=== PATIENT | female | born 1940 | race African-American/Black ===

== ENCOUNTER 2018-08-24 08:53 | Outpatient (CLI) | payer MEDICARE | END 2018-08-24 08:54 | disposition home or self-care (01) | LOC: BICMAMMO 08:53 | PROVIDERS: ATTEND Family Medicine | DX: Z12.31 Encounter for screening mammogram for malignant neoplasm of breast (principal); Z80.3 Family history of malignant neoplasm of breast | CPT/HCPCS: 77063; 77067 ==

== ENCOUNTER 2018-10-06 21:43 | Emergency (ER) | payer MEDICARE ==
--- NOTE | 2018-10-06 22:27 | CT ---
HEAD CT WITHOUT CONTRAST: 10/06/18 COMPARISON: 01/02/10. HISTORY: Fall. TECHNIQUE: Serial axial CT imaging at 5 mm intervals from vertex through skull base without contrast. FINDINGS: The imaged paranasal sinuses and mastoid air cells are well aerated. There is no displaced calvarial fracture. There is a focal area of scalp swelling seen in the right frontal region. There is moderate diffuse cerebral volume loss with associated prominence of the CSF containing spaces. Mild white mat ter hypodensity suggests small vessel disease. There is no intracranial hemorrhage, midline shift, or mass effect. IMPRESSION: Scalp swelling in the right supraorbital region. No associated fracture or intracranial hemorrhage. POS: [facility]
--- NOTE | 2018-10-06 22:29 | RAD ---
FOUR VIEWS OF THE LEFT KNEE: 10/06/18 COMPARISON: None. HISTORY: Injury, trauma, pain. FINDINGS: The lateral exam demonstrates no knee joint effusion. There is enthesophyte formation at the insertio n of the quadriceps tendon. There is mild medial and lateral compartment narrowing. There is no displ aced fracture or evidence of dislocation seen. IMPRESSION: No acute fracture or dislocation. POS: [facility]
== END 2018-10-06 23:11 | disposition short-term general hospital (02) ==
LOC: ERS 21:43
DX: S00.03XA Contusion of scalp, initial encounter (principal); E11.9 Type 2 diabetes mellitus without complications; I10 Essential (primary) hypertension; Z99.2 Dependence on renal dialysis; W19.XXXA Unspecified fall, initial encounter
CPT/HCPCS: 70450; 93005

== ENCOUNTER 2019-04-22 08:28 | Emergency (ER) | payer MEDICARE ==
[2019-04-22] MEDS ORDERED: Lidocaine 4% Topical Sol 50 ML BOT ONE (09:08)
[2019-04-22] MEDS ORDERED: Acetaminophen 500 MG TAB ONE (09:08)
[2019-04-22 09:14] LABS: #Basophils 0.1 thou/uL (0.0-0.2); #Eosinphils 0.5 thou/uL (0.0-0.7); #Lymphocytes 1.7 thou/uL (1.20-3.40); #Monocytes 0.7 thou/uL (0.11-0.59); %Basophils 0.8 % (0.0-1.0); %Eosinophils 6.8 % (0.0-10.0); %Lymphocytes 24.4 % (21.0-51.0); %Monocytes 10.4 % (0.0-10.0); %Neutrophils 57.5 % (42.0-75.0); Hemoglobin 11.4 g/dL (12.0-16.0); Mean Corpuscular HGB CONC 31.7 g/dL (32.0-36.0); Mean Corpuscular Hemoglobin 30.8 pg (27.0-31.0); Mean Corpuscular Volume 97.1 fL (78.0-98.0); Mean Platelet Volume 8.7 fL (7.4-10.4); Platelet Count 193 thou/uL (130-400); RBC Distribution Width 16.8 % (11.5-14.5); Red Blood Cell (RBC) Count 3.72 mill/uL (4.20-5.40)
--- NOTE | 2019-04-22 09:17 | RAD ---
FRONTAL VIEW CHEST: COMPARISON: 06/07/2017. INDICATION: Dizziness, otalgia. FINDINGS: There is enlargement of the cardiac silhouette. Lungs are clear. Mild prominence of the central pul monary vasculature. Chest is otherwise similar. IMPRESSION: Congestive heart failure. POS: [facility]
[2019-04-22 09:37] LABS: ALT (SGPT) 11 U/L (8-55); AST (SGOT) 17 U/L (5-34); Albumin 3.6 g/dL (3.4-4.8); Alkaline Phosphatase 148 U/L (40-150); Anion Gap 18 mmol/L (10-20); BUN (Urea Nitrogen) 46 mg/dL (9.8-20.1); Bilirubin, Total 0.7 mg/dL (0.2-1.2); Calc. Creatinine Clearance 0 mL/min (70-130); Calcium 8.7 mg/dL (7.8-10.44); Carbon Dioxide 28 mmol/L (23-31); Chloride 96 mmol/L (98-107); Estimated GFR-MDRD 6; Globulin 3.5 g/dL (2.4-3.5); Glucose 137 mg/dL (83-110); Lipase 18 U/L (8-78); Magnesium 1.6 mg/dL (1.6-2.6); Potassium 4.2 mmol/L (3.5-5.1); Protein, Total 7.1 g/dL (6.0-8.3); Sodium 138 mmol/L (136-145)
[2019-04-22 09:58] LABS: CKMB 1.2 ng/mL (0-6.6)
[2019-04-22 12:38] LABS: Troponin I 0.184 ng/mL (< 0.028)
== END 2019-04-22 13:01 | disposition home or self-care (01) ==
LOC: ERS 08:28
DX: H83.03 Labyrinthitis, bilateral (principal); E11.9 Type 2 diabetes mellitus without complications; I10 Essential (primary) hypertension; Z79.899 Other long term (current) drug therapy; Z79.82 Long term (current) use of aspirin
CPT/HCPCS: 36415; 71045; 80053; 82553; 83605; 83690; 83735; 84484; 85025; 93005; 94760

== ENCOUNTER 2019-08-28 08:59 | Outpatient (CLI) | payer MEDICARE ==
--- NOTE | 2019-08-28 10:05 | MMO ---
Bilateral MAMMO Bilat Screen [facility]. CLINICAL HISTORY: Patient is 79 years old and is seen for screening. The patient has no family history of breast cancer. The patient has no personal history of cancer. VIEWS: The views performed were: bilateral craniocaudal with tomosynthesis and bilateral mediolateral oblique with tomosynthesis. FILMS COMPARED: The present examination has been compared to prior imaging studies performed at [facility] on 08/12/2015, 08/17/2016, 08/18/2017 and 08/24/2018. This study has been interpreted with the assistance of computer-aided detection. MAMMOGRAM FINDINGS: There are scattered fibroglandular densities. Benign calcifications are noted bilaterally. There are no suspicious masses, suspicious calcifications, or new areas of architectural distortion. IMPRESSION: THERE IS NO MAMMOGRAPHIC EVIDENCE OF MALIGNANCY. A ROUTINE FOLLOW-UP MAMMOGRAM IN 1 YEAR IS RECOMMENDED. THE RESULTS OF THIS EXAM WERE SENT TO THE PATIENT. ACR BI-RADS Category 2 - Benign finding MAMMOGRAPHY NOTE: 1. A negative mammogram report should not delay a biopsy if a dominant of clinically suspicious mass is present. 2. Approximately 10% to 15% of breast cancers are not detected by mammography. 3. Adenosis and dense breasts may obscure an underlying neoplasm. Reported by: MICHAELA PINA MD Electonically Signed: [id number]
== END 2019-08-28 09:00 | disposition home or self-care (01) ==
LOC: BICMAMMO 08:59
PROVIDERS: ATTEND Family Medicine
DX: Z12.31 Encounter for screening mammogram for malignant neoplasm of breast (principal)
CPT/HCPCS: 77063; 77067

== ENCOUNTER 2020-06-23 09:41 | Outpatient (CLI) | payer MEDICARE ==
--- NOTE | 2020-06-23 10:58 | RAD ---
LEFT HAND 3 VIEWS: Date: 06/23/2020 HISTORY: Joint pain. COMPARISON: None. FINDINGS: There is mild to moderate metacarpophalangeal joint space narrowing and mild interphalangeal joint sp hector narrowing. No erosions or periostitis. On the lateral view, there is lateral subluxation of the thumb metacarpophalangeal joint with small e rosion on the medial margin of the metacarpal head suggesting chronic UCL insufficiency. IMPRESSION: 1. Mild degenerative change. 2. 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 POS: [facility]
--- NOTE | 2020-06-23 11:05 | RAD ---
RIGHT HAND 3 VIEWS: Date: 06/23/2020 HISTORY: Joint pain. FINDINGS: No acute fracture or malalignment. Mild metacarpophalangeal joint space narrowing as well as mild int erphalangeal joint space narrowing, as expected for age. On the lateral view, there is subluxation, radially of the thumb metacarpophalangeal joint. IMPRESSION: 1. Mild degenerative change as expected for age. 2. No evidence for inflammatory arthropathy. 3. Likely insufficient thumb metacarpophalangeal joint ulnar collateral ligament. POS: [facility]
== END 2020-06-23 09:42 | disposition home or self-care (01) ==
LOC: RAD 09:41
PROVIDERS: ATTEND Internal Medicine Rheumatology
DX: M25.541 Pain in joints of right hand (principal); M25.542 Pain in joints of left hand; M19.042 Primary osteoarthritis, left hand; M19.041 Primary osteoarthritis, right hand

== ENCOUNTER 2020-07-23 15:01 | Outpatient (CLI) | payer MEDICARE ==
--- NOTE | 2020-07-23 17:04 | RAD ---
Bone survey adult Skull one view, cervical spine 2 views, thoracic spine 2 views, lumbar spine 2 views, AP pelvis one v iew, right humerus one view, right forearm 1 view, left humerus one view, left forearm 1 view, right femur one view, right lower leg one view, left femur one view, left lower leg one view HISTORY: Multiple myeloma. Initial staging. FINDINGS: No lytic lesions of the skull or other osseous structures apparent. In addition to osteoarthritic changes throughout the axial spine, flowing syndesmophytes are present throughout the thoracic spine and upper lumbar spine. Vertebral body heights and alignment are maintained. Pedicles are intact. Mild degenerative changes of the hips, shoulders, elbows, and knees. Metallic clips overlie the gallbladder fossa. There is prominent calcification throughout the arteria l structures, including at the carotid bifurcations. Multiple vascular stents project over the left upper arm. IMPRESSION : No aggressive osseous lesions demonstrated. Findings suggestive of ankylosing spondylitis. Please correlate with clinical history/findings. Prominent atherosclerosis.
== END 2020-07-23 15:02 | disposition home or self-care (01) ==
LOC: RAD 15:01
PROVIDERS: ATTEND Internal Medicine Hematology & Oncology
DX: C90.00 Multiple myeloma not having achieved remission (principal); D47.2 Monoclonal gammopathy; I70.0 Atherosclerosis of aorta; I65.29 Occlusion and stenosis of unspecified carotid artery
CPT/HCPCS: 77075

== ENCOUNTER 2020-08-12 08:07 | Outpatient (CLI) | payer MEDICARE ==
--- NOTE | 2020-08-12 10:33 | PET ---
EXAM: PET/CT HISTORY: Multiple myeloma TECHNIQUE: PET scanning with CT attenuation correction was performed from the vertex of the brain to the feet fo llowing the intravenous administration of 11.4 millicuries [id number]. COMPARISON: CTA of the thorax dated January 26, 2019 FINDINGS: Biodistribution:The biodistribution for the exam appears acceptable. Head and neck: There is appropriate background activity within the brain. No hypermetabolic lymphaden opathy or masses identified. Thorax: No hypermetabolic pulmonary lesion, pleural effusion or lymphadenopathy is present. There is an endovascular dialysis graft seen within the left arm and left axilla. Abdomen and pelvis: There is expected background activity within the GI and systems. No hypermetab olic mass, lymphadenopathy or ascites is present. There is a 1.5 cm left adrenal adenoma. There are bilateral renal cysts. There is colonic diverticulosis. Osseous structures and skin: No hypermetabolic skin or osseous lesion is identified. IMPRESSION: Normal PET/CT. 1. No hypermetabolic abnormality demonstrated involving the head neck region, chest, abdomen, pelvis and lower extremities.
== END 2020-08-12 08:08 | disposition home or self-care (01) ==
LOC: PET 08:07
PROVIDERS: ATTEND Internal Medicine Hematology & Oncology
DX: C90.00 Multiple myeloma not having achieved remission (principal)
CPT/HCPCS: 78816; A9552

== ENCOUNTER 2020-08-26 08:07 | Day surgery (SDC) | payer MEDICARE ==
[~2020-08-26 08:07] MED LIST: FLU VACC QS2020-21(65YR UP)/PF 240 MCG/0.7 ML SYRINGE IM ONE
[2020-08-26 08:48] LABS: PTT 28.1 sec (22.9-36.1); Prothrombin Time 13.3 sec (12.0-14.7)
[2020-08-26 09:25] VITALS: BP 108/52; TEMP 97.8
[2020-08-26 09:36] VITALS: BMI 26.9
[2020-08-26] MEDS ORDERED: Midazolam HCl 2 mg/2 ml Vial ONE (10:03)
[2020-08-26] MEDS ORDERED: Fentanyl 100 MCG/2 ML VIAL ONE (10:03)
[2020-08-26] MEDS ORDERED: Sodium Bicarbonate 2.5 MEQ/5 ML VIAL ONE (10:03)
--- NOTE | 2020-08-26 11:50 | CT ---
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 Patient placed prone on CT table. Skin of lower back prepared and d raped in usual sterile fashion. 25-gauge needle used to apply buffered lidocaine superficially, then at the periosteum of the right PSIS. 11-gauge Arrow [employer]Control bone marrow biopsy needle with tro car advanced with distal tip slightly deep to the posterior cortical surface of the PSIS. Trocar removed. Marrow aspiration performed with 2 syringes, 3 mL in first syringe and 5 mL in second syring e, both of which were given to finishing technician from laboratory. Next, the electric power team driver was connected to the biopsy needle. The entire power team driver and 11-gauge needle set was advanced and retr acted, yielding a bone marrow core tissue sample, which was also given to the laboratory courier. Compression was held at the puncture site until hemostasis achieved. Patient tolerated pr ocedure well. No complications. IMPRESSION: Successful CT-guided bone marrow biopsy and aspiration.
--- NOTE | 2020-08-27 14:37 | CT ---
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 Patient placed prone on CT table. Skin of lower back prepared and d raped in usual sterile fashion. 25-gauge needle used to apply buffered lidocaine superficially, then at the periosteum of the right PSIS. 11-gauge Arrow OnControl bone marrow biopsy needle with tro car advanced with distal tip slightly deep to the posterior cortical surface of the PSIS. Trocar removed. Marrow aspiration performed with 2 syringes, 3 mL in first syringe and 5 mL in second syring e, both of which were given to stage technician from laboratory. Next, the electric power motor coach driver was connected to the biopsy needle. The entire power motor coach driver and 11-gauge needle set was advanced and retr acted, yielding a bone marrow core tissue sample, which was also given to the pathology laboratory aide. Compression was held at the puncture site until hemostasis achieved. Patient tolerated pr ocedure well. No complications. IMPRESSION: Successful CT-guided bone marrow biopsy and aspiration. Transcribed Date/Time: 08/27/2020 2:37 PM
== END 2020-08-26 11:30 | disposition home or self-care (01) ==
LOC: CT 08:07
PROVIDERS: ATTEND Internal Medicine Hematology & Oncology
PROC: 07DR3ZX Extraction of Iliac Bone Marrow, Percutaneous Approach, Diagnostic (ICD-10-PCS; principal; 2020-08-26)
DX: C90.00 Multiple myeloma not having achieved remission (principal); D47.2 Monoclonal gammopathy; I12.0 Hypertensive chronic kidney disease with stage 5 chronic kidney disease or end stage renal disease; E11.22 Type 2 diabetes mellitus with diabetic chronic kidney disease; N18.6 End stage renal disease; E78.5 Hyperlipidemia, unspecified; M06.9 Rheumatoid arthritis, unspecified; K21.9 Gastro-esophageal reflux disease without esophagitis; Z79.4 Long term (current) use of insulin; Z79.82 Long term (current) use of aspirin; Z79.899 Other long term (current) drug therapy; Z99.2 Dependence on renal dialysis
CPT/HCPCS: 20225; 36415; 77012; 85097; 85610; 85730; 88184; 88185; 88237; 88264; 88280; 88305; 88311; 88313; 88341; 88342; 88365; J2250; J3010

== ENCOUNTER 2020-08-27 09:41 | Outpatient (CLI) | payer MEDICARE ==
--- NOTE | 2020-08-29 10:14 | MMO ---
Bilateral MAMMO Bilat Screen [facility]. CLINICAL HISTORY: Patient is 80 years old and is seen for screening. The patient has no family history of breast cancer. The patient has no personal history of cancer. VIEWS: The views performed were: bilateral craniocaudal with tomosynthesis and bilateral mediolateral oblique with tomosynthesis. FILMS COMPARED: The present examination has been compared to prior imaging studies performed at [facility] on 08/17/2016, 08/18/2017, 08/24/2018 and 08/28/2019. This study has been interpreted with the assistance of computer-aided detection. MAMMOGRAM FINDINGS: There are scattered fibroglandular densities. There are stable benign appearing calcifications seen in both breasts. There are also vascular calcifications. There are no suspicious masses, suspicious calcifications, or new areas of architectural distortion. IMPRESSION: THERE IS NO MAMMOGRAPHIC EVIDENCE OF MALIGNANCY. A ROUTINE FOLLOW-UP MAMMOGRAM IN 1 YEAR IS RECOMMENDED. THE RESULTS OF THIS EXAM WERE SENT TO THE PATIENT. ACR BI-RADS Category 2 - Benign finding MAMMOGRAPHY NOTE: 1. A negative mammogram report should not delay a biopsy if a dominant of clinically suspicious mass is present. 2. Approximately 10% to 15% of breast cancers are not detected by mammography. 3. Adenosis and dense breasts may obscure an underlying neoplasm. Reported by: DAVID CEE MD Electonically Signed: [id number]
== END 2020-08-27 09:42 | disposition home or self-care (01) ==
LOC: BICMAMMO 09:41
PROVIDERS: ATTEND Family Medicine
DX: Z12.31 Encounter for screening mammogram for malignant neoplasm of breast (principal)
CPT/HCPCS: 77063; 77067

== ENCOUNTER 2020-12-04 12:49 | Emergency (ER) | payer MEDICARE ==
--- NOTE | 2020-12-04 13:54 | CT ---
CT CERVICAL SPINE NONCONTRAST: DATE: 12/04/2020 HISTORY: cervical trauma: 80-year-old female status post fall FINDINGS: There are no jumped or perched facets. There is no evidence of acute fracture. There is chronic loss of height of C5 vertebral body with very irregular superior endplate containing numerous osseous defects. Such numerous endplate osseous defects are also present at the inferior endplate of C4, to a lesser degree. The rest of the vertebral body heights are maintained. There is no prevertebral soft tissue swelling. IMPRESSION: 1. No evidence of acute fracture or acute traumatic subluxation. 2. Severe degenerative disc disease at C4-5.
--- NOTE | 2020-12-04 14:05 | CT ---
CT BRAIN NONCONTRAST: DATE: 12/04/2020 HISTORY: 80-year-old female status post acute head trauma from fall FINDINGS: There is no evidence of acute intra-axial or extra-axial hemorrhage. There is no midline shift or any other mass effect. There is no extra-axial fluid collection. There is no evidence of obstructive hydrocephalus. Calvarium is intact. There is diffuse brain parenchymal volume loss. There are low att enuation areas in the white matter. These are nonspecific, but in a patient of this age, they are probably chronic ischemic white matter changes due to microvascular atherosclerosis. There is focal l eft parietal superficial soft tissue swelling from contusion. IMPRESSION: 1) No acute intracranial findings. 2) involutional changes and chronic ischemic white matter changes. 3) acute, traumatic left parietal scalp contusion.
--- NOTE | 2020-12-04 14:20 | RAD ---
EXAM: XR Lumbar Spine 2 Or 3 View PROVIDED CLINICAL HISTORY: Low back pain. History of multiple myeloma. COMPARISON: 12/10/2011 FINDINGS: There are are 5 nonrib-bearing lumbar-type vertebral bodies. There is mild height loss involving the central aspect superior endplate of the L1 vertebral body which may represent a mild compression fracture of indeterminate age. The remaining vertebral body heights are within normal limits. No subl uxation is seen. Multilevel osteophytes are present with mild facet degenerative changes in the lower lumbar spine. Vascular calcifications are seen in the abdominal aorta and involving the iliac as well as overlying the left upper quadrant. There is a rounded calcification seen in the right upper quadrant also seen on prior exam which overlies the expected location of the right renal shadow. Prior PET/CT exami [facility] [place] on 08/12/2020 demonstrates a peripherally calcified splenic artery aneurysm likely accounting for this finding. IMPRESSION: 1. Mild height loss centrally along the superior endplate L1 vertebral body which may represent a com pression fractures of indeterminate age. 2. Degenerative changes in the lumbar spine. 3. Vascular calcifications with rounded also location overlying right upper quadrant which was shown to represent a peripherally calcified splenic artery aneurysm on prior PET/CT exam.
== END 2020-12-04 15:14 | disposition home or self-care (01) ==
LOC: ERS 12:49
DX: S00.03XA Contusion of scalp, initial encounter (principal); M54.5 Low back pain; E11.9 Type 2 diabetes mellitus without complications; I10 Essential (primary) hypertension; Z79.899 Other long term (current) drug therapy; W01.0XXA Fall on same level from slipping, tripping and stumbling without subsequent striking against object, initial encounter
CPT/HCPCS: 70450; 72100; 72125

== ENCOUNTER 2020-12-10 09:21 | Observation (INO) | payer MEDICARE ==
[2020-12-10 10:05] LABS: #Basophils 0.1 thou/uL (0.0-0.2); #Eosinphils 0.3 thou/uL (0.0-0.7); #Lymphocytes 2.3 thou/uL (1.20-3.40); #Monocytes 0.9 thou/uL (0.11-0.59); #Neutrophils 6.9 thou/uL (1.40-6.50); %Basophils 0.6 % (0.0-1.0); %Eosinophils 2.6 % (0.0-10.0); %Lymphocytes 22.1 % (21.0-51.0); %Monocytes 8.8 % (0.0-10.0); Hemoglobin 10.8 g/dL (12.0-16.0); Mean Corpuscular HGB CONC 32.1 g/dL (32.0-36.0); Mean Corpuscular Hemoglobin 32.5 pg (27.0-31.0); Mean Platelet Volume 9.5 fL (7.4-10.4); Platelet Count 198 thou/uL (130-400); RBC Distribution Width 17.9 % (11.5-14.5); Red Blood Cell (RBC) Count 3.33 mill/uL (4.20-5.40); White Blood Cell (WBC) Count 10.4 thou/uL (4.8-10.8)
--- NOTE | 2020-12-10 10:13 | RAD ---
Chest AP view INDICATION: History of Covid positive diagnosis with back pain COMPARISON: Prior single view the chest dated April 22, 2019 FINDINGS: Lungs: There is hazy airspace opacity within both lower lobes Cardiac silhouette: There is cardiomegaly Pulmonary vasculature: There is pulmonary vascular congestion Pleural spaces: There are small bilateral pleural effusions Upper abdomen: No abnormality seen. Osseous structures: No acute osseous abnormality. Additional findings: There are grafts present within the soft tissues of the left upper extremity th at are stable to the prior. IMPRESSION: Findings suspicious for volume overload or [id number] CHF. The airspace disease within the lower lobes is most suspicious for airspace edema; however, atypical pneumonia related to Covid cannot be entirely excluded. Recommend continued radiographic follow-up.
[2020-12-10] MEDS ORDERED: Ketorolac Tromethamine 30 MG/ML VIAL ONE (10:23)
[2020-12-10 10:29] LABS: ALT (SGPT) 10 U/L (8-55); AST (SGOT) 21 U/L (5-34); Albumin 3.3 g/dL (3.4-4.8); Alkaline Phosphatase 96 U/L (40-110); Anion Gap 23 mmol/L (10-20); BUN (Urea Nitrogen) 69 mg/dL (9.8-20.1); Bilirubin, Total 0.5 mg/dL (0.2-1.2); CK (CPK) 38 U/L (29-168); Calc. Creatinine Clearance 0 mL/min (70-130); Calcium 8.1 mg/dL (7.8-10.44); Carbon Dioxide 25 mmol/L (23-31); Chloride 96 mmol/L (98-107); Globulin 4.1 g/dL (2.4-3.5); Glucose 126 mg/dL (83-110); Magnesium 2.2 mg/dL (1.6-2.6); Protein, Total 7.4 g/dL (6.0-8.3); Sodium 138 mmol/L (136-145)
[2020-12-10 10:45] LABS: CKMB 1.9 ng/mL (0-6.6)
[2020-12-10 13:37] LABS: Troponin I 0.353 ng/mL (< 0.028)
--- NOTE | 2020-12-10 14:01 | PDOC.HHP ---
Hospitalist HPI - History of Present Illness Chest pain or shortness of breath History of Present Illness: Patient is a 80-year-old female with a history of end-stage renal disease on hemodialysis. Patient reports that she tested positive for Covid about 3 weeks ago. She says she became fatigued and lost her appetite for a while but that seems to be getting better. Patient reports that she was converted to a Tuesday dialysis regimen because of the Covid. She reports that she had dialysis on Tuesday but missed it yesterday because she was not feeling well. Today she presented to the emergency department reporting some discomfort in the right parasternal chest area with some associated shortness of breath. She had no radiation of the pain. She had no lightheadedness or nausea associated with it. She also reports pain in her right lateral hip area. ED Course: Patient was noted to have evidence of volume overload. She also had some hyperkalemia. Dr. Guevara, the patient's train gateman was notified. Patient has plans for dialysis to be performed shortly. She also had a slightly elevated troponin. Repeat shows it is trending upward. Hospitalist ROS - Review of Systems Constitutional: denies: fever, chills Respiratory: reports: shortness of breath. denies: cough Cardiovascular: reports: chest pain. denies: palpitations, edema, light headedness Gastrointestinal: denies: nausea, vomiting, abdominal pain, diarrhea, constipation Genitourinary: denies: dysuria All other systems reviewed; all pertinent +/- noted in HPI/Subj - Medication Medications: Atorvastatin 80 mg p.o. daily Lisinopril 40 mg p.o. daily Clonidine 0.3 mg p.o. twice daily Hospitalist History - Past Medical History Source: patient Cardiac: reports: HTN Renal/: reports: Chronic renal failure Endocrine: reports: Diabetes - Past Surgical History Past Surgical History: reports: Cholecystectomy - Family History Family History: reports: cancer (Mother) - Social History Smoking Status: Never smoker Alcohol: reports: None Drugs: reports: none Living Situation: Alone Activity level: independent ambulation Other Social History: Patient is full code. She says neither of her daughters, Alicia or Pooja, would be her surrogate decision makers. - Exam General Appearance: NAD, awake alert Eye: PERRL Heart: RRR, no murmur, no gallops, no rubs, normal peripheral pulses Respiratory: no wheezes, no ronchi, normal chest expansion, no tachypnea, normal percussion, rales (Scattered) Gastrointestinal: soft, non-tender, non-distended, normal bowel sounds, no palpable masses, no hepatomegaly, no splenomegaly, no bruit Extremities: no cyanosis, no clubbing, no edema Skin: normal turgor Neurological: no focal deficits Musculoskeletal: normal tone, normal strength Psychiatric: normal affect, normal behavior, A&O x 3 Hospitalist Results - Labs Result Diagrams: 12/10/20 09:47 12/10/20 09:47 Lab results: WBC 10.4 thou/uL (4.8-10.8) 12/10/20 09:47 Hgb 10.8 g/dL (12.0-16.0) L 12/10/20 09:47 Hct 33.7 % (36.0-47.0) L 12/10/20 09:47 MCV 101.0 fL (78.0-98.0) H 12/10/20 09:47 Plt Count 198 thou/uL (130-400) 12/10/20 09:47 Neutrophils % 66.0 % (42.0-75.0) 12/10/20 09:47 Sodium 138 mmol/L (136-145) 12/10/20 09:47 Potassium 6.0 mmol/L (3.5-5.1) H 12/10/20 09:47 Chloride 96 mmol/L (98-107) L 12/10/20 09:47 Carbon Dioxide 25 mmol/L (23-31) 12/10/20 09:47 BUN 69 mg/dL (9.8-20.1) H 12/10/20 09:47 Creatinine 9.23 mg/dL (0.6-1.1) H 12/10/20 09:47 Glucose 126 mg/dL (83-110) H 12/10/20 09:47 Calcium 8.1 mg/dL (7.8-10.44) 12/10/20 09:47 Total Bilirubin 0.5 mg/dL (0.2-1.2) 12/10/20 09:47 AST 21 U/L (5-34) 12/10/20 09:47 ALT 10 U/L (8-55) 12/10/20 09:47 Alkaline Phosphatase 96 U/L (40-110) 12/10/20 09:47 Creatine Kinase 38 U/L (29-168) 12/10/20 09:47 CK-MB (CK-2) 1.9 ng/mL (0-6.6) 12/10/20 09:47 Troponin I 0.353 ng/mL (< 0.028) H* 12/10/20 12:53 Serum Total Protein 7.4 g/dL (6.0-8.3) 12/10/20 09:47 Albumin 3.3 g/dL (3.4-4.8) L 12/10/20 09:47 - Radiology Interpretation Chest x-ray Status: report reviewed by me (Vascular congestion) Hospitalist H&P A/P - Problem (1) Chest pain Code(s): R07.9 - CHEST PAIN, UNSPECIFIED Status: Acute (2) Elevated troponin Code(s): R77.8 - OTHER SPECIFIED ABNORMALITIES OF PLASMA PROTEINS Status: Acute (3) Diabetes type 2, controlled Code(s): E11.9 - TYPE 2 DIABETES MELLITUS WITHOUT COMPLICATIONS Status: Chronic (4) ESRD (end stage renal disease) on dialysis Code(s): N18.6 - END STAGE RENAL DISEASE; Z99.2 - DEPENDENCE ON RENAL DIALYSIS Status: Chronic (5) Hypertension Code(s): I10 - ESSENTIAL (PRIMARY) HYPERTENSION Status: Chronic (6) Hyperkalemia Code(s): E87.5 - HYPERKALEMIA Status: Acute (7) Anemia in chronic kidney disease Code(s): N18.9 - CHRONIC KIDNEY DISEASE, UNSPECIFIED; D63.1 - ANEMIA IN CHRONIC KIDNEY DISEASE Status: Acute - Plan Plan: Chest pain: Patient presented with right parasternal chest pressure. Her troponins are slightly elevated and trending upward slightly. These may completely be related to her age and end-stage renal disease. Historically she has had some slight elevations in her troponin as well. Given her symptoms and the upward trend we will communicate with her car diologist, Dr. Thomason. Continue to trend troponins. Continue telemetry. Patient reports she has had a stress test with Dr. Thomason but she cannot recall when. May be related to some volume overload with some pulmonary vascular congestion. Patient is due to get dialysis shortly. Volume overload secondary to end-stage renal disease: Patient missed her dialysis yesterday and has evidence of volume overload with pulmonary vascular congestion and shortness of breath. Dr. Guevara was consulted in the emergency department. Dialysis is being arranged for the patient here in the emergency department. Hyperkalemia: Secondary to missed dialysis and end-stage renal disease. Should resolve with the dialysis. Hypertension: Resume her usual home medications with lisinopril and clonidine. Diabetes mellitus: Patient does not appear to be on medications currently that I can tell. We will continue Accu-Cheks and sliding scale insulin as needed. Hyperlipidemia: Continue with atorvastatin. Recent diagnosis of Covid pneumonia: Patient reports that she tested positive over 3 weeks ago. She appears to be outside the window of requiring isolation. Repeat screening has been ordered in the emergency department.
[2020-12-10] MEDS ORDERED: Aspirin Chewable 81 MG TAB ONE (14:06)
[2020-12-10 15:32] LABS: SARS-CoV-2 NAA Rapid Test DETECTED (NotDetected)
[2020-12-10 15:41] VITALS: BMI 25.7
[2020-12-10 16:59] LABS: Troponin I 0.422 ng/mL (< 0.028)
[2020-12-10 17:05] LABS: HBSAg Index 0.24 S/CO (0-0.99); Hep B Surf Ag Non-Reactive S/CO (NonReactive)
--- NOTE | 2020-12-10 18:29 | CON ---
DATE OF CONSULTATION: REASON FOR CONSULTATION: Elevated troponin. Dr. Serge Thomason is the primary provider. HISTORY OF PRESENT ILLNESS: Ms. Eastman is an 80-year-old woman, who has been seen by Dr. Serge Thomason in the past. She recently presented with COVID pneumonia. She states she did not feel well recently. She skipped her dialysis. She has had atypical chest pain. Troponin slightly elevated. CURRENT MEDICATIONS: Include, 1. Prednisone. 2. Clonidine. 3. Vitamin D3. 4. Aspirin. 5. Hydralazine. 6. Calcium. 7. Levemir. 8. Dialyvite. 9. Lisinopril. 10. Metoprolol. 11. Atorvastatin. PAST MEDICAL HISTORY: End-stage renal disease, acid reflux, hyperlipidemia, diabetes mellitus, hypertension. SURGICAL HISTORY: hyperlipidemia. ALLERGIES: NONE. REVIEW OF SYSTEMS: A 10-point review of systems is reviewed and is as above, otherwise negative. PHYSICAL EXAMINATION: VITAL SIGNS: Blood pressure 156/69, pulse 64, temperature 98. Physical exam deferred due to COVID pneumonia. PERTINENT LABORATORY DATA: Hemoglobin 10.8, hematocrit 33.7. Creatinine 9.23. Peak troponin 0.4. IMPRESSION: 1. Elevated troponin. 2. COVID positive pneumonia. 3. End-stage renal disease. RECOMMENDATIONS: Ms. Eastman's elevated troponin likely multifactorial. It is likely due to demand ischemia in addition to COVID pneumonia as well as end-stage renal disease. Continue close observation and treat her blood pressure aggressively. Do not recommend heparin, but continue with aspirin. We will also recommend beta-michael therapy and statin treatment. Further recommendation per Dr. Serge Thomason in a.m. Job ID: [id number]
[2020-12-11 05:04] LABS: Anion Gap 18 mmol/L (10-20); BUN (Urea Nitrogen) 33 mg/dL (9.8-20.1); Calc. Creatinine Clearance 10 mL/min (70-130); Calcium 7.7 mg/dL (7.8-10.44); Carbon Dioxide 28 mmol/L (23-31); Chloride 97 mmol/L (98-107); Glucose 87 mg/dL (83-110); Potassium 4.6 mmol/L (3.5-5.1); Sodium 138 mmol/L (136-145)
[2020-12-11] MEDS: Acetaminophen 325 MG TAB PO PRN ×2 (06:12→13:34)
--- NOTE | 2020-12-11 09:42 | CON ---
DATE OF CONSULTATION: 12/11/2020 HISTORY OF PRESENT ILLNESS: Ms. Eastman is an 80-year-old black female with ESRD, currently on maintenance hemodialysis, recently diagnosed with COVID-19 pneumonia, and admitted for chest pain and shortness of breath. She underwent emergent hemodialysis yesterday. She was also borderline hyperkalemic at that time. There was some mildly elevated troponin-I. Cardiology consult has been done with Dr. Garcia. This morning, she is feeling better. Her shortness of breath has improved. Denies any chest pain. She tolerated her hemodialysis yesterday. REVIEW OF SYSTEMS: No chest pain currently, no shortness of breath. No nausea. No vomiting. Appetite and energy level are fair. No gross hematuria. No dysuria. No abdominal pain. No fever or chills. Occasional cough. Occasional joint pains. No hematochezia. No melena. HOME MEDICATIONS: Include the following; 1. Prednisone 5 mg daily. 2. Clonidine 0.3 mg p.o. b.i.d. 3. Lyrica 25 mg daily. 4. Metoprolol succinate 100 mg at bedtime. 5. Lisinopril 40 mg daily. 6. Levemir 8 units subcu daily. 7. Folic acid one tablet daily. 8. Vitamin D3, 5000 international units at bedtime. 9. Atorvastatin 80 mg at bedtime. 10. Aspirin 81 mg tablet at bedtime. PAST MEDICAL HISTORY: 1. ESRD from diabetic nephropathy. 2. Type 2 diabetes mellitus. 3. Hypertension. 4. Diabetic neuropathy. 5. DJD. 6. Hyperlipidemia. 7. Recent diagnosis of COVID-19 pneumonia. 8. Status post CHF. 9. Long-standing hypertension. 10. History of multiple myeloma. PAST SURGICAL HISTORY: Status post AV fistula placement, status post open cholecystectomy, status post cuffed hemodialysis catheter placement, status post right shoulder and left elbow surgery, status post cataract surgery, status post upper and lower GI endoscopy. The patient is status post bone marrow biopsy. SOCIAL HISTORY: The patient is , lives in [place], several children. No history of smoking. No alcohol intake. Status post blood transfusion. Sedentary lifestyle. FAMILY HISTORY: No family history of ESRD. ALLERGIES: NONE. TRAUMA: None. IMMUNIZATIONS: Up to date. HOSPITALIZATIONS: Please see past medical history. PHYSICAL EXAMINATION: VITAL SIGNS: Blood pressure is noted at 152/66, heart rate 81, respiratory rate 18, temperature 98.4, O2 saturation 98% on room air. GENERAL: The patient is awake, alert, comfortable, not in overt distress. SKIN: Adequate turgor. HEENT: She has pinkish conjunctivae. Anicteric sclerae. No neck mass. No carotid bruits. No JVD. CHEST: No deformities. LUNGS: Clear breath sounds. No wheezing. No crackles. HEART: Normal sinus rhythm. No murmur. No gallops. No rubs. ABDOMEN: Globular, soft, nontender. No masses. EXTREMITIES: No edema. No deformities. LABORATORY DATA: On December 10, 2020: White count 10.4, hemoglobin 10.8. On December 11, 2020: Sodium 138, potassium 4.6, chloride 97, carbon dioxide 28, BUN 33, creatinine 5.03, calcium 7.7. ASSESSMENT AND PLAN: 1. Mild hyperkalemia, resolved with dialysis. 2. End-stage renal disease, stable. Tolerated hemodialysis last night. Fluid removal is also tolerated. No indication for any emergent dialysis today. I have scheduled her back for Tuesday, Tuesday, and Tuesday dialysis session. 3. COVID-19 pneumonia. Today is her last day for isolation. She will come back to the general population at the dialysis unit tomorrow. Job ID: [id number]
[2020-12-11 16:42] VITALS: BP 168/79; TEMP 98.4
--- NOTE | 2020-12-11 20:00 | PDOC.DS.DS ---
Provider - Provider Date of Admission: 12/10/20 11:09 Date of Discharge: 12/11/20 Admitting Provider: Jignesh Mcdaniel MD Consultations: Cardiology (Dr. Garcia), Nephrology (Dr. Guevara) Primary Care Physician: Khushi Santos MD Course - Hospital Course Hospital Course: Discharge diagnoses: 1. Chest pain 2. Volume overload 3. NSTEMI type II secondary to volume overload 4. Hyperkalemia Hospital course: Pt was admitted on 12/10/2020 for chest pain and elevated troponin secondary to volume overload. She was seen by nephrology and cardiology services. She underwent emergent hemodialysis. Symptoms resolved, and she was discharged home in a stable condition. Discharge destination: Home Resuscitation Status: 12/10/20 13:08 Resuscitation Status Routine Resuscitation Status: FULL: Full Resuscitation - Labs Lab Results: 12/10/20 09:47 12/11/20 04:33 Abnormal Lab Results - Last 48 hrs 12/10/20 09:47: Troponin I 0.264 H 12/10/20 09:47: Potassium 6.0 H, Chloride 96 L, Anion Gap 23 H, BUN 69 H, Creatinine 9.23 H, Albumin 3.3 L, Globulin 4.1 H, Albumin/Globulin Ratio 0.8 L 12/10/20 09:47: RBC 3.33 L, Hgb 10.8 L, Hct 33.7 L, MCV 101.0 H, MCH 32.5 H, RDW 17.9 H, Neutrophils # 6.9 H, Monocytes # 0.9 H 12/10/20 12:20: SARS-CoV-2 Rap RNA(RT-PCR) DETECTED A* 12/10/20 12:53: Troponin I 0.353 H* 12/10/20 16:12: Troponin I 0.422 H* 12/11/20 04:33: Chloride 97 L, BUN 33 H, Creatinine 5.03 H, Calcium 7.7 L - Physical Exam Vitals: Vital Signs (12 hours) Temp Pulse Resp BP Pulse Ox 12/11/20 16:39 98.4 F 79 18 168/79 H 95 12/11/20 10:50 98.5 F 80 15 165/68 H 96 12/11/20 08:00 98.4 F 81 18 152/66 H 98 Weight Weight 159 lb Physical Exam: The patient was seen and examined on the day of discharge. Plan - Discharge Medications Home Medications: Medication Instructions Recorded Confirmed Type Aspirin Chewable [Aspirin Chewable 81 mg PO HS 09/23/14 12/11/20 History Tablet] Cholecalciferol (Vitamin D3) 5,000 unit PO HS 09/23/14 12/11/20 History [Vitamin D3] Folic Acid/Vit B Complex and C 1 tablet PO DAILY 09/23/14 12/11/20 History [Dialyvite] Levemir Flexpen [Levemir FlexPen] 8 unit SC DAILY 09/23/14 12/11/20 History Lisinopril 40 mg PO DAILY 09/23/14 12/11/20 History Metoprolol Succinate [Toprol XL] 100 mg PO HS 09/23/14 12/11/20 History cloNIDine [Catapres] 0.3 mg PO BID 09/23/14 12/11/20 History predniSONE [Prednisone] 5 mg PO DAILY 08/18/20 12/11/20 History Atorvastatin Calcium 80 mg PO HS 12/11/20 12/11/20 History Pregabalin [Lyrica] 25 mg PO DAILY 12/11/20 12/11/20 History Allergies: No Known Allergies Allergy (Verified 08/25/20 08:40) - Discharge Instructions Activity:: Activity as Tolerated Nourishment:: Diabetic Diet, Heart Healthy Diet, Renal Diet - Follow up Plan Referrals: Khushi Santos MD [Primary Care Provider] - 3 Days Serge Thomason MD [Active] - Hector Guevara MD [Active] - Disposition: HOME Quality - Care Measures CORE MEASURES:: N/A
--- NOTE | 2020-12-27 20:36 | EKG ---
Test Reason : SOB Blood Pressure : / mmHG Vent. Rate : 073 BPM Atrial Rate : 073 BPM P-R Int : 176 ms QRS Dur : 138 ms QT Int : 462 ms P-R-T Axes : 057 -52 057 degrees QTc Int : 508 ms Normal sinus rhythm Right bundle branch block Left anterior fascicular block Bifascicular block Abnormal ECG Confirmed by DUC SCHNEIDER, SERGEY ([id number]), society editor FOX CAMPUZANO ([id number]) on 12/27/2020 8:36:36 PM Referred By: Confirmed By:SERGEY XAVIER MD
== END 2020-12-11 18:05 | disposition home or self-care (01) ==
LOC: ERS 09:21 → ERHOLD 11:09 → 2SW 14:51
PROVIDERS: ADMIT Internal Medicine; ATTEND Internal Medicine
DX: E11.21 Type 2 diabetes mellitus with diabetic nephropathy (principal); E11.22 Type 2 diabetes mellitus with diabetic chronic kidney disease; N18.6 End stage renal disease; D63.1 Anemia in chronic kidney disease; E87.70 Fluid overload, unspecified; I21.A1 Myocardial infarction type 2; E87.5 Hyperkalemia; U07.1 COVID-19; J12.82 Pneumonia due to coronavirus disease 2019; E11.40 Type 2 diabetes mellitus with diabetic neuropathy, unspecified; M19.90 Unspecified osteoarthritis, unspecified site; E78.5 Hyperlipidemia, unspecified; I11.0 Hypertensive heart disease with heart failure; I50.9 Heart failure, unspecified; Z79.4 Long term (current) use of insulin; Z79.52 Long term (current) use of systemic steroids; Z79.82 Long term (current) use of aspirin; Z79.899 Other long term (current) drug therapy; Z99.2 Dependence on renal dialysis
CPT/HCPCS: 71045; 80048; 80053; 82550; 82553; 82962 ×2; 83735; 84484 ×2; 85025; 87340; 93005; 96374; 99285; G0378 ×3; U0002; 36415; 36416; 90935; G0257; J1885

== ENCOUNTER 2021-02-14 20:48 | Emergency (ER) | payer MEDICARE ==
[2021-02-14] MEDS ORDERED: HYDROcodone/Acetaminophen 10/325 mg Tablet ONE (21:28)
== END 2021-02-15 01:14 | disposition home or self-care (01) ==
LOC: ERS 20:48
DX: S42.202A Unspecified fracture of upper end of left humerus, initial encounter for closed fracture (principal); S02.85XA Fracture of orbit, unspecified, initial encounter for closed fracture; E11.9 Type 2 diabetes mellitus without complications; I10 Essential (primary) hypertension; K21.9 Gastro-esophageal reflux disease without esophagitis; W18.30XA Fall on same level, unspecified, initial encounter
CPT/HCPCS: 70450; 70486; 72125

== ENCOUNTER 2021-02-16 16:10 | Inpatient (IN) | payer MEDICARE ==
[~2021-02-16 16:10] MED LIST changes: -FLU VACC QS2020-21(65YR UP)/PF 240 MCG/0.7 ML SYRINGE IM ONE; +Iopamidol-370 76% 500 ML 1 ML ONE
[2021-02-16 16:38] LABS: #Basophils 0.1 thou/uL (0.0-0.2); #Eosinphils 0.1 thou/uL (0.0-0.7); #Lymphocytes 1.9 thou/uL (1.20-3.40); #Monocytes 1.2 thou/uL (0.11-0.59); #Neutrophils 6.9 thou/uL (1.40-6.50); %Basophils 0.5 % (0.0-1.0); %Eosinophils 1.1 % (0.0-10.0); %Lymphocytes 18.4 % (21.0-51.0); Hemoglobin 9.2 g/dL (12.0-16.0); Mean Corpuscular HGB CONC 32.3 g/dL (32.0-36.0); Mean Corpuscular Volume 99.1 fL (78.0-98.0); Mean Platelet Volume 8.8 fL (7.4-10.4); Platelet Count 182 thou/uL (130-400); RBC Distribution Width 17.4 % (11.5-14.5); Red Blood Cell (RBC) Count 2.86 mill/uL (4.20-5.40); White Blood Cell (WBC) Count 10.2 thou/uL (4.8-10.8)
[2021-02-16] MEDS ORDERED: Diltiazem 125 MG/25 ML ONE (16:43)
[2021-02-16 17:05] LABS: ALT (SGPT) 10 U/L (8-55); AST (SGOT) 21 U/L (5-34); Albumin 2.8 g/dL (3.4-4.8); Alkaline Phosphatase 89 U/L (40-110); Anion Gap 18 mmol/L (10-20); BUN (Urea Nitrogen) 18 mg/dL (9.8-20.1); Bilirubin, Total 0.3 mg/dL (0.2-1.2); Calc. Creatinine Clearance 0 mL/min (70-130); Calcium 7.4 mg/dL (7.8-10.44); Carbon Dioxide 23 mmol/L (23-31); Chloride 103 mmol/L (98-107); Globulin 3.4 g/dL (2.4-3.5); Glucose 121 mg/dL (83-110); Protein, Total 6.2 g/dL (5.8-8.1); Sodium 141 mmol/L (136-145)
[2021-02-16 17:16] LABS: Potassium 2.9 mmol/L (3.5-5.1)
[2021-02-16] MEDS ORDERED: Potassium Chloride 40 MEQ in Sodium Chloride 0.9% 250 ML 250 ML IVPB SCH (17:30)
[2021-02-16] MEDS ORDERED: Digoxin 0.5 MG/2 ML AMP ONE (18:00)
[2021-02-16] MEDS ORDERED: Amiodarone 150 MG, Admixture Fee 1 EACH in Dextrose 5% in Water 100 ML IVPB SCH (18:15)
[2021-02-16 20:02] LABS: Troponin I 0.904 ng/mL (< 0.028)
[2021-02-16] MEDS ORDERED: Aspirin Chewable 81 MG TAB ONE (20:14)
[2021-02-16] MEDS ORDERED: Enoxaparin Sodium 80 MG/0.8 ML SYRINGE ONE (20:19)
[2021-02-16 20:43] LABS: SARS-CoV-2 NAA Rapid Test DETECTED (NotDetected)
[2021-02-16] MEDS ORDERED: Electrolyte Replacement Protocol 1 EACH FS PRN (21:15)
[2021-02-16] MEDS ORDERED: Ondansetron PF 4 MG/2 ML Vial IVP PRN (21:16)
[2021-02-16] MEDS ORDERED: Dextrose 50% Abboject 50 ML SYRINGE SLOW IVP PRN (21:16)
[2021-02-16] MEDS ORDERED: Dextrose 5% in Water 1,000 ML IV PRN (21:16)
[2021-02-16] MEDS ORDERED: Nitroglycerin 0.4 MG TAB (25 Tab Bottle) SL PRN (21:16)
[2021-02-16] MEDS ORDERED: Acetaminophen 325 MG TAB PO PRN (21:16)
[2021-02-16] MEDS ORDERED: HumaLOG 300 UNITS/3 ML VIAL SC PRN (21:16)
[2021-02-16] MEDS ORDERED: Ondansetron ODT 4 MG TAB PO PRN (21:16)
[2021-02-16 23:22] LABS: Troponin I 8.734 ng/mL (< 0.028)
[2021-02-17 00:36] VITALS: BMI 27.1
[2021-02-17] MEDS ORDERED: Magnesium 2 GM/50 ML 2 GM in Premix Bag 1 BAG IVPB SCH (01:30)
[2021-02-17] MEDS: Amiodarone 450 MG, Admixture Fee 1 EACH in Dextrose 5% in Water 250 ML IVPB SCH ×2 (04:24→20:37)
[2021-02-17 07:34] LABS: #Eosinphils 0.2 thou/uL (0.0-0.7); #Lymphocytes 1.5 thou/uL (1.20-3.40); #Monocytes 1.4 thou/uL (0.11-0.59); #Neutrophils 8.4 thou/uL (1.40-6.50); %Basophils 0.4 % (0.0-1.0); %Eosinophils 1.4 % (0.0-10.0); %Neutrophils 73.2 % (42.0-75.0); Hemoglobin 8.9 g/dL (12.0-16.0); Mean Corpuscular HGB CONC 32.6 g/dL (32.0-36.0); Mean Corpuscular Hemoglobin 32.3 pg (27.0-31.0); Mean Corpuscular Volume 99.2 fL (78.0-98.0); Mean Platelet Volume 9.3 fL (7.4-10.4); Platelet Count 193 thou/uL (130-400); RBC Distribution Width 17.6 % (11.5-14.5); Red Blood Cell (RBC) Count 2.75 mill/uL (4.20-5.40); White Blood Cell (WBC) Count 11.5 thou/uL (4.8-10.8)
[2021-02-17] MEDS: Heparin 5,000 UNITS/ML VIAL SC SCH ×3 (09:18→21:21)
[2021-02-17 11:11] LABS: Calc. Creatinine Clearance 10 mL/min (70-130)
[2021-02-17 11:12] LABS: Carbon Dioxide 24 mmol/L (23-31); Chloride 99 mmol/L (98-107); Potassium 4.3 mmol/L (3.5-5.1); Sodium 137 mmol/L (136-145)
[2021-02-17 11:13] LABS: Anion Gap 18 mmol/L (10-20); BUN (Urea Nitrogen) 31 mg/dL (9.8-20.1); Calcium 7.9 mg/dL (7.8-10.44); Glucose 129 mg/dL (83-110); Magnesium 2.3 mg/dL (1.6-2.6)
[2021-02-17] MEDS ORDERED: Aspirin Chewable 81 MG TAB PO SCH (16:30)
[2021-02-17] MEDS ORDERED: Atorvastatin Calcium 40 MG TAB PO SCH (21:00)
[2021-02-17] MEDS: Atorvastatin Calcium 40 MG TAB PO SCH (21:20)
[2021-02-17 21:23] LABS: CKMB 11.9 ng/mL (0-6.6)
[2021-02-17] MEDS: HYDROcodone/Acetaminophen 10/325 mg Tablet PO PRN (21:28)
[2021-02-18] MEDS: HYDROcodone/Acetaminophen 10/325 mg Tablet PO PRN (03:51)
[2021-02-18] MEDS ORDERED: Communication Order-Pharmacy FS SCH (07:15)
[2021-02-18] MEDS ORDERED: Heparin 10,000 UNITS/ 10 ML VIAL ONE (08:59)
[2021-02-18] MEDS ORDERED: Lidocaine 1% (PF) 30 ML VIAL ONE (08:59)
[2021-02-18] MEDS ORDERED: Fentanyl 100 MCG/2 ML VIAL ONE (09:35)
[2021-02-18] MEDS ORDERED: Midazolam HCl 2 mg/2 ml Vial ONE (09:35)
[2021-02-18] MEDS ORDERED: Protamine Sulfate 50 MG/5 ML VIAL ONE (09:57)
[2021-02-18] MEDS ORDERED: Nitroglycerin 0.4 MG TAB (25 Tab Bottle) SL PRN (10:18)
[2021-02-18] MEDS ORDERED: Acetaminophen/Codeine 30-300mg Tablet PO PRN ×2 (10:18)
[2021-02-18] MEDS ORDERED: Sodium Chloride 0.9% 200 ML IV PRN (10:18)
[2021-02-18] MEDS ORDERED: Amiodarone 200 MG TAB PO SCH (10:30)
[2021-02-18] MEDS: Sevelamer Carbonate 800 MG TAB PO SCH ×3 (10:53→18:00)
[2021-02-18] MEDS: Folic Acid/Vit B Comp W-C PO SCH (10:53)
[2021-02-18 11:39] LABS: Cardiac Risk 3.3 (Less than 4.5)
[2021-02-18] MEDS: predniSONE 5 MG TAB PO SCH (11:52)
[2021-02-18] MEDS: Heparin 5,000 UNITS/ML VIAL SC SCH (13:43)
[2021-02-18] MEDS ORDERED: Iopamidol 370 76% 100 ML VIAL ONE (14:35)
[2021-02-18] MEDS: Amiodarone 200 MG TAB PO SCH (21:08)
[2021-02-18] MEDS: Atorvastatin Calcium 40 MG TAB PO SCH (21:08)
[2021-02-19] MEDS ORDERED: EPOETIN ALFA-EPBX (ESRD) 4,000 UNIT/ML VIAL SC SCH (09:15)
[2021-02-19] MEDS: Sevelamer Carbonate 800 MG TAB PO SCH ×3 (10:44→17:09)
[2021-02-19] MEDS: Amiodarone 200 MG TAB PO SCH ×2 (10:45→22:16)
[2021-02-19] MEDS: predniSONE 5 MG TAB PO SCH (10:45)
[2021-02-19] MEDS: Folic Acid/Vit B Comp W-C PO SCH (10:45)
[2021-02-19] MEDS: HYDROcodone/Acetaminophen 10/325 mg Tablet PO PRN (14:36)
[2021-02-19] MEDS ORDERED: Mag-Al Plus 1200 MG/1200 MG/120 MG/30 ML UDCUP PO PRN (17:06)
[2021-02-19] MEDS ORDERED: hydrALAZINE 20 MG/ML VIAL SLOW IVP PRN (18:38)
[2021-02-19] MEDS: Atorvastatin Calcium 40 MG TAB PO SCH (22:16)
[2021-02-20 04:49] LABS: #Eosinphils 0.3 thou/uL (0.0-0.7); #Lymphocytes 2.5 thou/uL (1.20-3.40); #Monocytes 0.8 thou/uL (0.11-0.59); #Neutrophils 9.7 thou/uL (1.40-6.50); %Basophils 0.3 % (0.0-1.0); %Eosinophils 2.1 % (0.0-10.0); %Lymphocytes 18.8 % (21.0-51.0); %Monocytes 6.1 % (0.0-10.0); %Neutrophils 72.6 % (42.0-75.0); Hemoglobin 9.1 g/dL (12.0-16.0); Mean Corpuscular HGB CONC 31.8 g/dL (32.0-36.0); Mean Corpuscular Hemoglobin 31.8 pg (27.0-31.0); Mean Platelet Volume 9.1 fL (7.4-10.4); Platelet Count 225 thou/uL (130-400); RBC Distribution Width 17.4 % (11.5-14.5); Red Blood Cell (RBC) Count 2.87 mill/uL (4.20-5.40); White Blood Cell (WBC) Count 13.4 thou/uL (4.8-10.8)
[2021-02-20 05:08] LABS: Anion Gap 20 mmol/L (10-20); BUN (Urea Nitrogen) 35 mg/dL (9.8-20.1); Calc. Creatinine Clearance 8 mL/min (70-130); Calcium 8.1 mg/dL (7.8-10.44); Carbon Dioxide 27 mmol/L (23-31); Chloride 89 mmol/L (98-107); Glucose 117 mg/dL (83-110); Potassium 3.9 mmol/L (3.5-5.1); Sodium 132 mmol/L (136-145)
[2021-02-20] MEDS: Famotidine 20 MG TAB PO SCH (15:42)
[2021-02-20] MEDS: Sevelamer Carbonate 800 MG TAB PO SCH ×3 (15:42→17:22)
[2021-02-20] MEDS: Amiodarone 200 MG TAB PO SCH ×2 (15:43→20:32)
[2021-02-20] MEDS: Amlodipine 5 MG TAB PO SCH (15:43)
[2021-02-20] MEDS: Folic Acid/Vit B Comp W-C PO SCH (15:43)
[2021-02-20] MEDS: predniSONE 5 MG TAB PO SCH (15:43)
[2021-02-20] MEDS: Atorvastatin Calcium 40 MG TAB PO SCH (20:33)
[2021-02-21 07:41] VITALS: BP 183/79; TEMP 98.6
[2021-02-21] MEDS: Amlodipine 5 MG TAB PO SCH (08:19)
[2021-02-21] MEDS: Folic Acid/Vit B Comp W-C PO SCH (08:19)
[2021-02-21] MEDS: Sevelamer Carbonate 800 MG TAB PO SCH (08:19)
[2021-02-21] MEDS: Amiodarone 200 MG TAB PO SCH (08:19)
[2021-02-21] MEDS: predniSONE 5 MG TAB PO SCH (08:19)
[2021-02-21] MEDS: Famotidine 20 MG TAB PO SCH (08:24)
[2021-02-21] MEDS ORDERED: Lidocaine 5% Patch TD SCH (09:00)
[2021-02-21] MEDS ORDERED: Transdermal Patch Removal TOP SCH (21:00)
[2021-03-04] MEDS ORDERED: Amiodarone 200 MG TAB PO SCH (09:00)
[2021-03-18] MEDS ORDERED: Amiodarone 200 MG TAB PO SCH (09:00)
== END 2021-02-21 11:10 | DRG 280 ==
LOC: ERS 16:10 → IMCU/EMU 18:50 → 2NO 02-19 17:50
PROVIDERS: ADMIT Internal Medicine; ATTEND Internal Medicine
PROC: 4A023N7 Measurement of Cardiac Sampling and Pressure, Left Heart, Percutaneous Approach (ICD-10-PCS; principal; 2021-02-18)
PROC: B2111ZZ Fluoroscopy of Multiple Coronary Arteries using Low Osmolar Contrast (ICD-10-PCS; 2021-02-18)
PROC: 5A1D70Z Performance of Urinary Filtration, Intermittent, Less than 6 Hours Per Day (ICD-10-PCS; 2021-02-20)
DX: I48.91 Unspecified atrial fibrillation (principal); N18.6 End stage renal disease; I21.A1 Myocardial infarction type 2; S42.302A Unspecified fracture of shaft of humerus, left arm, initial encounter for closed fracture; S02.31XA Fracture of orbital floor, right side, initial encounter for closed fracture; C90.00 Multiple myeloma not having achieved remission; M47.029 Vertebral artery compression syndromes, site unspecified; I12.0 Hypertensive chronic kidney disease with stage 5 chronic kidney disease or end stage renal disease; E87.1 Hypo-osmolality and hyponatremia; I45.2 Bifascicular block; E11.22 Type 2 diabetes mellitus with diabetic chronic kidney disease; R19.7 Diarrhea, unspecified; G89.29 Other chronic pain; M54.5 Low back pain; E87.6 Hypokalemia; D63.1 Anemia in chronic kidney disease; R07.89 Other chest pain; W19.XXXA Unspecified fall, initial encounter; R53.81 Other malaise; M48.061 Spinal stenosis, lumbar region without neurogenic claudication; M54.30 Sciatica, unspecified side; R15.9 Full incontinence of feces; K21.9 Gastro-esophageal reflux disease without esophagitis; Z99.2 Dependence on renal dialysis; Z86.16 Personal history of COVID-19; Z90.49 Acquired absence of other specified parts of digestive tract
CPT/HCPCS: 36415; 36416; 70450; 70486; 71045; 71275; 72125; 72131; 72148; 80048; 80053; 80061; 82553; 83735; 83880; 84443; 84484; 85025; 85347; 90935; 93005; 93458; 96365; 96366; 96372; 96375; 96376; 97139; 99152; G0257; J0282; J0360; J1160; J1644; J1650; J1815; J2001; J2250; J2405; J2720; J3010; J3475; J3480; J7050; J7070; J7512; Q0162; Q5105; Q9967; U0002

== ENCOUNTER 2022-06-11 09:25 | Emergency (ER) | payer MEDICARE | END 2022-06-11 12:16 | disposition home or self-care (01) | LOC: ERS 09:25 | DX: M71.21 Synovial cyst of popliteal space [Baker], right knee (principal); E11.9 Type 2 diabetes mellitus without complications; I10 Essential (primary) hypertension; K21.9 Gastro-esophageal reflux disease without esophagitis; Z79.01 Long term (current) use of anticoagulants; Z79.899 Other long term (current) drug therapy | CPT/HCPCS: 93005 ==

== ENCOUNTER 2022-06-29 15:36 | Emergency (ER) | payer MEDICARE ==
[2022-06-29] MEDS ORDERED: Acetaminophen 325 MG TAB ONE (17:00)
== END 2022-06-29 17:47 | disposition home or self-care (01) ==
LOC: ERS 15:36
DX: G56.21 Lesion of ulnar nerve, right upper limb (principal); E11.9 Type 2 diabetes mellitus without complications; I10 Essential (primary) hypertension; K21.9 Gastro-esophageal reflux disease without esophagitis; Z79.899 Other long term (current) drug therapy; Z79.84 Long term (current) use of oral hypoglycemic drugs; Z79.01 Long term (current) use of anticoagulants

== ENCOUNTER 2023-01-13 16:26 | Emergency (ER) | payer MEDICARE ==
[2023-01-13 17:09] LABS: #Eosinphils 0.3 thou/uL (0.0-0.7); #Lymphocytes 1.4 thou/uL (1.20-3.40); #Monocytes 0.7 thou/uL (0.11-0.59); #Neutrophils 3.2 thou/uL (1.40-6.50); %Basophils 0.6 % (0.0-1.0); %Eosinophils 4.6 % (0.0-10.0); %Lymphocytes 24.8 % (21.0-51.0); %Neutrophils 58.1 % (42.0-75.0); Hemoglobin 12.1 g/dL (12.0-16.0); Mean Corpuscular HGB CONC 31.8 g/dL (32.0-36.0); Mean Corpuscular Hemoglobin 31.9 pg (27.0-31.0); Mean Platelet Volume 9.9 fL (7.4-10.4); Platelet Count 148 10x3/uL (130-400); RBC Distribution Width 19.9 % (11.5-14.5); Red Blood Cell (RBC) Count 3.78 mill/uL (4.20-5.40); White Blood Cell (WBC) Count 5.5 10x3/uL (4.8-10.8)
== END 2023-01-13 19:21 ==
LOC: ERS 16:26
DX: I77.0 Arteriovenous fistula, acquired (principal); E11.9 Type 2 diabetes mellitus without complications; I10 Essential (primary) hypertension; K21.9 Gastro-esophageal reflux disease without esophagitis
CPT/HCPCS: 36415; 85025; 99283

== ENCOUNTER 2023-01-29 15:34 | Emergency (ER) | payer MEDICARE ==
[2023-01-29 16:29] LABS: #Basophils 0.1 thou/uL (0.0-0.2); #Eosinphils 0.2 thou/uL (0.0-0.7); #Lymphocytes 1.6 thou/uL (1.20-3.40); #Monocytes 0.7 thou/uL (0.11-0.59); #Neutrophils 4.8 thou/uL (1.40-6.50); %Eosinophils 3.1 % (0.0-10.0); %Lymphocytes 21.9 % (21.0-51.0); %Monocytes 9.1 % (0.0-10.0); Hemoglobin 11.6 g/dL (12.0-16.0); Mean Corpuscular HGB CONC 32.1 g/dL (32.0-36.0); Mean Corpuscular Hemoglobin 32.9 pg (27.0-31.0); Mean Platelet Volume 9.4 fL (7.4-10.4); Platelet Count 184 10x3/uL (130-400); RBC Distribution Width 19.9 % (11.5-14.5); Red Blood Cell (RBC) Count 3.52 mill/uL (4.20-5.40); White Blood Cell (WBC) Count 7.3 10x3/uL (4.8-10.8)
[2023-01-29 16:41] LABS: INR-International Normal Ratio 1.4; PTT 31.2 sec (22.9-36.1); Prothrombin Time 17.6 sec (12.0-14.7)
[2023-01-29 16:52] LABS: ALT (SGPT) 59 U/L (8-55); AST (SGOT) 64 U/L (5-34); Albumin 3.1 g/dL (3.4-4.8); Alkaline Phosphatase 177 U/L (40-110); Anion Gap 18 mmol/L (10-20); BUN (Urea Nitrogen) 15 mg/dL (9.8-20.1); Bilirubin, Total 0.7 mg/dL (0.2-1.2); Calc. Creatinine Clearance 0 mL/min (70-130); Calcium 8.8 mg/dL (7.8-10.44); Carbon Dioxide 27 mmol/L (23-31); Chloride 96 mmol/L (98-107); Estimated GFR 15; Globulin 4.1 g/dL (2.4-3.5); Glucose 104 mg/dL (83-110); Potassium 3.4 mmol/L (3.5-5.1); Protein, Total 7.2 g/dL (5.8-8.1); Sodium 138 mmol/L (136-145)
== END 2023-01-29 18:34 | disposition home or self-care (01) ==
LOC: ERS 15:34
DX: T82.898A Other specified complication of vascular prosthetic devices, implants and grafts, initial encounter (principal); I12.0 Hypertensive chronic kidney disease with stage 5 chronic kidney disease or end stage renal disease; E11.22 Type 2 diabetes mellitus with diabetic chronic kidney disease; K21.9 Gastro-esophageal reflux disease without esophagitis; D63.1 Anemia in chronic kidney disease; R00.1 Bradycardia, unspecified; Z99.2 Dependence on renal dialysis
CPT/HCPCS: 36415; 80053; 83880; 85025; 85610; 85730; 99284

== ENCOUNTER 2023-07-29 07:14 | Emergency (ER) | payer MEDICARE ==
[2023-07-29 07:55] LABS: #Eosinphils 0.1 thou/uL (0.0-0.7); #Monocytes 0.8 thou/uL (0.11-0.59); #Neutrophils 2.2 thou/uL (1.40-6.50); %Basophils 0.9 % (0.0-1.0); %Eosinophils 2.8 % (0.0-10.0); %Lymphocytes 26.8 % (21.0-51.0); Hematocrit 34.5 % (36.0-47.0); Hemoglobin 10.8 g/dL (12.0-16.0); Mean Corpuscular HGB CONC 31.3 g/dL (32.0-36.0); Mean Corpuscular Hemoglobin 30.4 pg (27.0-31.0); Mean Corpuscular Volume 97.2 fl (78.0-98.0); Mean Platelet Volume 11.6 fL (7.4-10.4); Platelet Count 174 10x3/uL (130-400); RBC Distribution Width 21.4 % (11.5-14.5); Red Blood Cell (RBC) Count 3.55 mill/uL (4.20-5.40); White Blood Cell (WBC) Count 4.3 10x3/uL (4.8-10.8)
[2023-07-29 08:20] LABS: Phosphorus 4.3 mg/dL (2.3-4.7)
[2023-07-29 08:22] LABS: ALT (SGPT) 46 U/L (8-55); AST (SGOT) 61 U/L (5-34); Albumin 3.3 g/dL (3.4-4.8); Alkaline Phosphatase 231 U/L (40-110); Anion Gap 15 mmol/L (10-20); BUN (Urea Nitrogen) 30 mg/dL (9.8-20.1); Bilirubin, Total 0.8 mg/dL (0.2-1.2); Calc. Creatinine Clearance 0 mL/min (70-130); Calcium 8.8 mg/dL (7.8-10.44); Carbon Dioxide 31 mmol/L (23-31); Chloride 93 mmol/L (98-107); Estimated GFR 7; Globulin 4.4 g/dL (2.4-3.5); Glucose 83 mg/dL (83-110); Magnesium 1.9 mg/dL (1.6-2.6); Potassium 3.4 mmol/L (3.5-5.1); Protein, Total 7.7 g/dL (5.8-8.1); Sodium 136 mmol/L (136-145)
== END 2023-07-29 11:43 | disposition home or self-care (01) ==
LOC: ERS 07:14
DX: M16.11 Unilateral primary osteoarthritis, right hip (principal); E11.9 Type 2 diabetes mellitus without complications; I10 Essential (primary) hypertension; K21.9 Gastro-esophageal reflux disease without esophagitis; Z79.01 Long term (current) use of anticoagulants; Z79.899 Other long term (current) drug therapy
CPT/HCPCS: 36415; 72170; 80053; 83735; 84100; 85025

== ENCOUNTER 2023-08-03 16:47 | Inpatient (IN) | payer MEDICARE ==
[~2023-08-03 16:47] MED LIST changes: -Iopamidol-370 76% 500 ML 1 ML ONE; +Iopamidol-370 76% 500 ML MDV (1 ML CHARGE) ONE
[2023-08-03 18:07] LABS: #Basophils 0.1 thou/uL (0.0-0.2); #Eosinphils 0.2 thou/uL (0.0-0.7); #Monocytes 0.8 thou/uL (0.11-0.59); #Neutrophils 2.5 thou/uL (1.40-6.50); %Eosinophils 3.1 % (0.0-10.0); %Lymphocytes 27.8 % (21.0-51.0); %Monocytes 16.3 % (0.0-10.0); %Neutrophils 51.6 % (42.0-75.0); Hematocrit 37.5 % (36.0-47.0); Hemoglobin 11.8 g/dL (12.0-16.0); Mean Corpuscular HGB CONC 31.5 g/dL (32.0-36.0); Mean Corpuscular Hemoglobin 31.1 pg (27.0-31.0); Mean Corpuscular Volume 98.9 fl (78.0-98.0); Mean Platelet Volume 11.4 fL (7.4-10.4); Platelet Count 179 10x3/uL (130-400); RBC Distribution Width 21.7 % (11.5-14.5); Red Blood Cell (RBC) Count 3.79 mill/uL (4.20-5.40); White Blood Cell (WBC) Count 4.9 10x3/uL (4.8-10.8)
[2023-08-03 18:27] LABS: INR-International Normal Ratio 1.3; Prothrombin Time 16.7 sec (12.0-14.7)
[2023-08-03 18:28] LABS: PTT 35.9 sec (22.9-36.1)
[2023-08-03 18:36] LABS: ALT (SGPT) 50 U/L (8-55); AST (SGOT) 67 U/L (5-34); Albumin 3.4 g/dL (3.4-4.8); Alkaline Phosphatase 258 U/L (40-110); Anion Gap 18 mmol/L (10-20); BUN (Urea Nitrogen) 30 mg/dL (9.8-20.1); Calc. Creatinine Clearance 0 mL/min (70-130); Calcium 8.4 mg/dL (7.8-10.44); Carbon Dioxide 27 mmol/L (23-31); Chloride 95 mmol/L (98-107); Estimated GFR 7; Globulin 4.5 g/dL (2.4-3.5); Glucose 129 mg/dL (83-110); Lipase 40 U/L (8-78); Potassium 3.5 mmol/L (3.5-5.1); Protein, Total 7.9 g/dL (5.8-8.1); Sodium 136 mmol/L (136-145)
[2023-08-03 18:48] LABS: Bilirubin, Total Less than 1.0 mg/dL (0.2-1.2)
[2023-08-03] MEDS ORDERED: Acetaminophen 650 MG Suppository PR PRN (21:26)
[2023-08-03] MEDS ORDERED: Ondansetron ODT 4 MG TAB PO PRN (21:26)
[2023-08-03] MEDS ORDERED: Acetaminophen 325 MG TAB PO PRN (21:26)
[2023-08-03] MEDS ORDERED: Ondansetron PF 4 MG/2 ML Vial IVP PRN (21:26)
[2023-08-03 21:51] LABS: Lactic Acid 1.6 mmol/L (0.5-2.2)
[2023-08-03 23:55] LABS: Hematocrit 35.4 % (36.0-47.0)
[2023-08-04] MEDS ORDERED: Dextrose 50% Abboject 50 ML SYRINGE SLOW IVP PRN (00:33)
[2023-08-04] MEDS ORDERED: HumaLOG 300 UNITS/3 ML VIAL SC PRN ×2 (00:33)
[2023-08-04] MEDS ORDERED: Glucagon 1 MG/ML KIT IM PRN (00:33)
[2023-08-04] MEDS ORDERED: Dextrose 5% in Water 1,000 ML IV PRN (00:33)
[2023-08-04 02:56] VITALS: BMI 25.5
[2023-08-04 06:02] LABS: #Basophils 0.1 thou/uL (0.0-0.2); #Eosinphils 0.2 thou/uL (0.0-0.7); #Monocytes 0.7 thou/uL (0.11-0.59); #Neutrophils 2.5 thou/uL (1.40-6.50); %Eosinophils 4.2 % (0.0-10.0); %Lymphocytes 27.8 % (21.0-51.0); %Monocytes 15.3 % (0.0-10.0); %Neutrophils 51.3 % (42.0-75.0); Hematocrit 34.4 % (36.0-47.0); Hemoglobin 10.6 g/dL (12.0-16.0); Mean Corpuscular HGB CONC 30.8 g/dL (32.0-36.0); Mean Corpuscular Hemoglobin 30.5 pg (27.0-31.0); Mean Corpuscular Volume 99.1 fl (78.0-98.0); Mean Platelet Volume 11.6 fL (7.4-10.4); Platelet Count 165 10x3/uL (130-400); RBC Distribution Width 21.8 % (11.5-14.5); Red Blood Cell (RBC) Count 3.47 mill/uL (4.20-5.40); White Blood Cell (WBC) Count 4.8 10x3/uL (4.8-10.8)
[2023-08-04 06:28] LABS: Anion Gap 17 mmol/L (10-20); BUN (Urea Nitrogen) 33 mg/dL (9.8-20.1); Calc. Creatinine Clearance 8 mL/min (70-130); Calcium 8.2 mg/dL (7.8-10.44); Carbon Dioxide 27 mmol/L (23-31); Chloride 96 mmol/L (98-107); Estimated GFR 7; Glucose 83 mg/dL (83-110); Potassium 3.3 mmol/L (3.5-5.1); Sodium 137 mmol/L (136-145)
[2023-08-04 07:39] LABS: HBSAg Index 0.25 S/CO (0-0.99); Hep B Core Total Ab Non-Reactive (NonReactive); Hep B Core Total Index 0.19 S/CO (0-0.79); Hep B Surf Ag Non-Reactive S/CO (NonReactive); Hep C IgG Ab Non-Reactive S/CO (NonReactive)
[2023-08-04 08:05] LABS: HBSAB Concentration 13.99 mIU/mL; Hep B Surf AB Reactive (NonReactive)
[2023-08-04] MEDS: Pantoprazole 40 MG VIAL IVP SCH (11:29)
[2023-08-04] MEDS ORDERED: Polyethylene Glycol 3350 17 GM Packet PO SCH (16:45)
[2023-08-04] MEDS: Senokot S 8.6-50 MG TAB PO SCH (21:04)
[2023-08-05 05:53] LABS: #Basophils 0.1 thou/uL (0.0-0.2); #Eosinphils 0.1 thou/uL (0.0-0.7); #Monocytes 0.7 thou/uL (0.11-0.59); #Neutrophils 2.7 thou/uL (1.40-6.50); %Eosinophils 2.8 % (0.0-10.0); Hematocrit 37.5 % (36.0-47.0); Hemoglobin 11.5 g/dL (12.0-16.0); Mean Corpuscular HGB CONC 30.7 g/dL (32.0-36.0); Mean Corpuscular Hemoglobin 30.6 pg (27.0-31.0); Mean Corpuscular Volume 99.7 fl (78.0-98.0); Mean Platelet Volume 10.9 fL (7.4-10.4); Platelet Count 166 10x3/uL (130-400); RBC Distribution Width 21.8 % (11.5-14.5); Red Blood Cell (RBC) Count 3.76 mill/uL (4.20-5.40); White Blood Cell (WBC) Count 4.9 10x3/uL (4.8-10.8)
[2023-08-05 06:33] LABS: Albumin 3.4 g/dL (3.4-4.8); Anion Gap 15 mmol/L (10-20); BUN (Urea Nitrogen) 21 mg/dL (9.8-20.1); Calc. Creatinine Clearance 11 mL/min (70-130); Calcium 8.6 mg/dL (7.8-10.44); Carbon Dioxide 28 mmol/L (23-31); Chloride 96 mmol/L (98-107); Estimated GFR 10; Glucose 88 mg/dL (83-110); Phosphorus 3.6 mg/dL (2.3-4.7); Potassium 4.1 mmol/L (3.5-5.1); Sodium 135 mmol/L (136-145)
[2023-08-05] MEDS: Senokot S 8.6-50 MG TAB PO SCH (08:20)
[2023-08-05] MEDS: Pantoprazole 40 MG VIAL IVP SCH (08:21)
[2023-08-05] MEDS ORDERED: Polyethylene Glycol 3350 17 GM Packet PO SCH (09:00)
[2023-08-05 16:48] VITALS: BP 156/63; TEMP 98.5
== END 2023-08-05 18:15 | disposition home or self-care (01) | DRG 393 ==
LOC: ERS 16:47 → ERHOLD 20:02 → SJJU 08-04 02:23 → OBSVTOIN 08-04 14:42
PROVIDERS: ADMIT Student in an Organized Health Care Education/Training Program; ATTEND Internal Medicine
DX: K64.8 Other hemorrhoids (principal); N18.6 End stage renal disease; D62 Acute posthemorrhagic anemia; S32.028A Other fracture of second lumbar vertebra, initial encounter for closed fracture; I12.0 Hypertensive chronic kidney disease with stage 5 chronic kidney disease or end stage renal disease; E11.22 Type 2 diabetes mellitus with diabetic chronic kidney disease; K21.9 Gastro-esophageal reflux disease without esophagitis; I48.91 Unspecified atrial fibrillation; E03.9 Hypothyroidism, unspecified; E87.6 Hypokalemia; K59.00 Constipation, unspecified; N28.89 Other specified disorders of kidney and ureter; Z79.02 Long term (current) use of antithrombotics/antiplatelets; Z79.899 Other long term (current) drug therapy; Z99.2 Dependence on renal dialysis; Z79.890 Hormone replacement therapy; Z98.890 Other specified postprocedural states
CPT/HCPCS: 36415; 36416; 74018; 74177; 74178; 80048; 80053; 80069; 82274; 83605; 83690; 85025; 85610; 85730; 86704; 86850; 86900; 86901; C9113; J1815; Q9967

== ENCOUNTER 2023-11-15 13:15 | Emergency (ER) | payer MEDICARE ==
[2023-11-15 18:56] LABS: #Eosinphils 0.1 thou/uL (0.0-0.7); #Monocytes 0.6 thou/uL (0.11-0.59); #Neutrophils 5.3 thou/uL (1.40-6.50); %Basophils 0.6 % (0.0-1.0); %Eosinophils 1.7 % (0.0-10.0); %Lymphocytes 15.2 % (21.0-51.0); %Monocytes 8.2 % (0.0-10.0); Hematocrit 37.7 % (36.0-47.0); Mean Corpuscular HGB CONC 31.8 g/dL (32.0-36.0); Mean Corpuscular Hemoglobin 32.3 pg (27.0-31.0); Mean Corpuscular Volume 101.6 fl (78.0-98.0); Mean Platelet Volume 11.2 fL (7.4-10.4); Platelet Count 142 10x3/uL (130-400); RBC Distribution Width 17.7 % (11.5-14.5); Red Blood Cell (RBC) Count 3.71 mill/uL (4.20-5.40); White Blood Cell (WBC) Count 7.2 10x3/uL (4.8-10.8)
[2023-11-15 19:17] LABS: ALT (SGPT) 22 U/L (8-55); AST (SGOT) 36 U/L (5-34); Albumin 3.7 g/dL (3.4-4.8); Alkaline Phosphatase 185 U/L (40-110); Anion Gap 20 mmol/L (10-20); BUN (Urea Nitrogen) 37 mg/dL (9.8-20.1); Bilirubin, Total 0.9 mg/dL (0.2-1.2); Calc. Creatinine Clearance 0 mL/min (70-130); Calcium 8.2 mg/dL (7.8-10.44); Carbon Dioxide 25 mmol/L (23-31); Chloride 96 mmol/L (98-107); Estimated GFR 7; Globulin 4.6 g/dL (2.4-3.5); Glucose 104 mg/dL (83-110); Magnesium 1.9 mg/dL (1.6-2.6); Potassium 3.2 mmol/L (3.5-5.1); Protein, Total 8.3 g/dL (5.8-8.1); Sodium 138 mmol/L (136-145)
[2023-11-15 19:29] LABS: Troponin I 0.241 ng/mL (< 0.028)
[2023-11-15] MEDS ORDERED: HYDROcodone/Acetaminophen 5/325 mg Tablet ONE (19:40)
== END 2023-11-15 20:20 ==
LOC: ERS 13:15
DX: S22.048A Other fracture of fourth thoracic vertebra, initial encounter for closed fracture (principal); S22.058A Other fracture of T5-T6 vertebra, initial encounter for closed fracture; R94.31 Abnormal electrocardiogram [ECG] [EKG]; I12.0 Hypertensive chronic kidney disease with stage 5 chronic kidney disease or end stage renal disease; E11.22 Type 2 diabetes mellitus with diabetic chronic kidney disease; N18.6 End stage renal disease; K21.9 Gastro-esophageal reflux disease without esophagitis; W18.11XA Fall from or off toilet without subsequent striking against object, initial encounter; Y93.F9 Activity, other caregiving; Y92.121 Bathroom in nursing home as the place of occurrence of the external cause; Z99.2 Dependence on renal dialysis; Z79.01 Long term (current) use of anticoagulants; Z79.899 Other long term (current) drug therapy
CPT/HCPCS: 36415; 70450; 72125; 72128; 72131; 72146; 72170; 80053; 83735; 84484; 85025; 93005

== ENCOUNTER 2023-11-21 17:41 | Inpatient (IN) | payer MEDICARE, OTHER ==
[~2023-11-21 17:41] MED LIST changes: +EPINEPHrine 1 MG/10 ML Abboject SYRINGE ONE; -Iopamidol-370 76% 500 ML MDV (1 ML CHARGE) ONE
[2023-11-21] MEDS ORDERED: Naloxone HCl 0.4 mg/ml Vial ONE (18:00)
[2023-11-21 18:18] LABS: Hematocrit 34.4 % (36.0-47.0); Hemoglobin 11.2 g/dL (12.0-16.0); Manual Diff?? YES; Mean Corpuscular HGB CONC 32.6 g/dL (32.0-36.0); Mean Corpuscular Hemoglobin 32.3 pg (27.0-31.0); Mean Corpuscular Volume 99.1 fl (78.0-98.0); Mean Platelet Volume 12.1 fL (7.4-10.4); Platelet Count 167 10x3/uL (130-400); RBC Distribution Width 18.1 % (11.5-14.5); Red Blood Cell (RBC) Count 3.47 mill/uL (4.20-5.40); White Blood Cell (WBC) Count 9.7 10x3/uL (4.8-10.8)
[2023-11-21 18:20] LABS: Delete Auto Diff?? YES
[2023-11-21 18:39] LABS: Lymphocytes 8 % (21-51); Monocytes 5 % (0-10); Neutrophil 87 % (42-75); Nucleated RBC (Manual Ct) 1 % (0); Polychromasia SLIGHT = 2-3 cells (100X) (0-2/hpf); Target Cells SLIGHT = 2-5 cells (100X) (0-1/hpf)
[2023-11-21] MEDS ORDERED: Atropine Sulfate 1 mg/10 ml Syringe ONE ×2 (18:39→18:46)
[2023-11-21 18:40] LABS: Acetaminophen Less than 10 mcg/mL (10.0-30.0); Alcohol Less than 10.0 mg/dL (Less than 10); Magnesium 2.3 mg/dL (1.6-2.6); Platelet Adequacy Comment Platelets Normal; Salicylate Less than 8.0 mg/dL (15.0-30.0)
[2023-11-21 18:41] LABS: ALT (SGPT) 305 U/L (8-55); AST (SGOT) 474 U/L (5-34); Albumin 3.5 g/dL (3.4-4.8); Alkaline Phosphatase 212 U/L (40-110); Anion Gap 24 mmol/L (10-20); BUN (Urea Nitrogen) 56 mg/dL (9.8-20.1); Bilirubin, Total 1.2 mg/dL (0.2-1.2); Calc. Creatinine Clearance 0 mL/min (70-130); Calcium 7.9 mg/dL (7.8-10.44); Carbon Dioxide 24 mmol/L (23-31); Chloride 93 mmol/L (98-107); Estimated GFR 6; Globulin 4.3 g/dL (2.4-3.5); Glucose 141 mg/dL (83-110); Potassium 4.2 mmol/L (3.5-5.1); Protein, Total 7.8 g/dL (5.8-8.1); Sodium 137 mmol/L (136-145)
[2023-11-21 18:43] LABS: Phosphorus 5.2 mg/dL (2.3-4.7)
[2023-11-21] MEDS ORDERED: NOREPINEPHRINE 8 MG/250 ML-D5W 250 ML ONE (18:49)
[2023-11-21 20:03] LABS: Actual Bicarbonate (HCO3v) 27.5 mEq/L (22-28); Base Excess 1.3 mEq/L (-2.0 to +3.0); Calcium, Ionized (venous) 0.91 mmol/L (1.16-1.32); Chloride (VBG) 93 mmol/L (98-106); Hematocrit-VBG 36 % (36.0-47.0); Hemoglobin (Hb) 12.1 g/dL (11.7-16.1); Potassium (VBG) 4.91 mmol/L (3.70-5.30); Sodium 140 mmol/L (133-146); pH (venous) 7.352 (7.32-7.43)
[2023-11-21] MEDS ORDERED: Acetaminophen 650 MG Suppository PR PRN (20:41)
[2023-11-21] MEDS ORDERED: Acetaminophen 325 MG (10.15 ML) UDCUP PO PRN (20:41)
[2023-11-21 20:47] LABS: SARS-CoV-2 NAA Rapid Test Not Detected (NotDetected)
[2023-11-21] MEDS ORDERED: Piperacillin/Tazobactam 3.375 GM in Sodium Chloride 0.9% 100 ML IVPB SCH ×2 (23:00→23:59)
[2023-11-21 23:41] LABS: Lactic Acid 2.2 mmol/L (0.5-2.2)
[2023-11-21 23:46] LABS: ALT (SGPT) 303 U/L (8-55); AST (SGOT) 461 U/L (5-34); Albumin 3.4 g/dL (3.4-4.8); Alkaline Phosphatase 234 U/L (40-110); Anion Gap 23 mmol/L (10-20); BUN (Urea Nitrogen) 55 mg/dL (9.8-20.1); Bilirubin, Total 1.3 mg/dL (0.2-1.2); Calc. Creatinine Clearance 7 mL/min (70-130); Calcium 7.7 mg/dL (7.8-10.44); Carbon Dioxide 21 mmol/L (23-31); Chloride 98 mmol/L (98-107); Estimated GFR 6; Globulin 4.3 g/dL (2.4-3.5); Glucose 194 mg/dL (83-110); Potassium 3.6 mmol/L (3.5-5.1); Protein, Total 7.7 g/dL (5.8-8.1); Sodium 138 mmol/L (136-145)
[2023-11-21] MEDS: NOREPINEPHRINE 8 MG/250 ML-D5W 250 ML IVPB PRN (23:57)
[2023-11-22] MEDS: Piperacillin/Tazobactam 3.375 GM in Sodium Chloride 0.9% 100 ML IVPB SCH ×2 (03:50→18:38)
[2023-11-22 04:15] LABS: Hematocrit 33.6 % (36.0-47.0); Hemoglobin 10.6 g/dL (12.0-16.0); Manual Diff?? YES; Mean Corpuscular HGB CONC 31.5 g/dL (32.0-36.0); Mean Corpuscular Hemoglobin 31.6 pg (27.0-31.0); Mean Corpuscular Volume 100.3 fl (78.0-98.0); Mean Platelet Volume 11.6 fL (7.4-10.4); Platelet Count 170 10x3/uL (130-400); RBC Distribution Width 18.2 % (11.5-14.5); Red Blood Cell (RBC) Count 3.35 mill/uL (4.20-5.40); White Blood Cell (WBC) Count 11.7 10x3/uL (4.8-10.8)
[2023-11-22 05:01] LABS: Delete Auto Diff?? YES
[2023-11-22 06:34] LABS: Band 1 % (5-11); Lymphocytes 15 % (21-51); Monocytes 2 % (0-10); Neutrophil 82 % (42-75); Nucleated RBC (Manual Ct) 8 % (0)
[2023-11-22 06:35] LABS: Macrocytosis SLIGHT = 6-15 cells (100X) (0-5/hpf); Platelet Adequacy Comment Platelets Normal; Polychromasia SLIGHT = 2-3 cells (100X) (0-2/hpf)
[2023-11-22] MEDS: Levothyroxine Sodium 112 MCG TAB PO SCH ×2 (07:18→07:25)
[2023-11-22] MEDS ORDERED: Famotidine/PF 20 mg/2ml Vial SLOW IVP SCH ×2 (09:00→11:00)
[2023-11-22] MEDS: Sertraline 100 MG TAB PO SCH (09:12)
[2023-11-22] MEDS: Senokot S 8.6-50 MG TAB PO SCH (09:12)
[2023-11-22] MEDS: Amiodarone 200 MG TAB PO SCH (09:12)
[2023-11-22] MEDS: NOREPINEPHRINE 8 MG/250 ML-D5W 250 ML IVPB PRN ×2 (09:13→21:18)
[2023-11-22] MEDS: Polyethylene Glycol 3350 17 GM Packet PO SCH (09:22)
[2023-11-22] MEDS: Melatonin 3 MG TAB PO SCH (20:10)
[2023-11-22] MEDS ORDERED: Atorvastatin Calcium 40 MG TAB PO SCH (21:00)
[2023-11-23] MEDS: Acetaminophen 325 MG TAB PO PRN ×3 (02:41→20:35)
[2023-11-23] MEDS: Piperacillin/Tazobactam 3.375 GM in Sodium Chloride 0.9% 100 ML IVPB SCH ×2 (03:51→15:54)
[2023-11-23 05:49] LABS: #Monocytes 0.7 thou/uL (0.11-0.59); #Neutrophils 6.8 thou/uL (1.40-6.50); %Basophils 0.2 % (0.0-1.0); %Eosinophils 0.5 % (0.0-10.0); %Monocytes 8.7 % (0.0-10.0); Hematocrit 31.5 % (36.0-47.0); Hemoglobin 9.9 g/dL (12.0-16.0); Mean Corpuscular HGB CONC 31.4 g/dL (32.0-36.0); Mean Corpuscular Hemoglobin 31.4 pg (27.0-31.0); Mean Platelet Volume 11.4 fL (7.4-10.4); Platelet Count 140 10x3/uL (130-400); RBC Distribution Width 18.2 % (11.5-14.5); Red Blood Cell (RBC) Count 3.15 mill/uL (4.20-5.40); White Blood Cell (WBC) Count 8.3 10x3/uL (4.8-10.8)
[2023-11-23 06:14] LABS: Anion Gap 19 mmol/L (10-20); BUN (Urea Nitrogen) 24 mg/dL (9.8-20.1); Calc. Creatinine Clearance 13 mL/min (70-130); Calcium 8.2 mg/dL (7.8-10.44); Carbon Dioxide 25 mmol/L (23-31); Chloride 94 mmol/L (98-107); Estimated GFR 11; Glucose 122 mg/dL (83-110); Potassium 3.1 mmol/L (3.5-5.1); Sodium 135 mmol/L (136-145)
[2023-11-23 06:32] LABS: HBCM Index 0.05 S/CO (0-0.79); HBSAg Index 0.17 S/CO (0-0.99); Hep A IgM AB Non-Reactive S/CO (NonReactive); Hep A IgM S/CO 0.36 S/CO (0-0.79); Hep B Surf Ag Non-Reactive S/CO (NonReactive); Hep C IgG Ab Non-Reactive S/CO (NonReactive); Hepatitis B Core IgM Abs Non-Reactive S/CO (NonReactive)
[2023-11-23] MEDS: Levothyroxine Sodium 112 MCG TAB PO SCH (06:44)
[2023-11-23] MEDS ORDERED: Potassium Chloride 20 MEQ TAB PO SCH (07:00)
[2023-11-23] MEDS ORDERED: Epoetin (ESRD) 10,000 UNITS/ML VIAL SC SCH (09:00)
[2023-11-23] MEDS ORDERED: Apixaban 2.5 MG TAB PO SCH (09:00)
[2023-11-23] MEDS ORDERED: Iopamidol-370 76% 500 ML MDV (1 ML CHARGE) ONE (09:29)
[2023-11-23] MEDS: Sertraline 100 MG TAB PO SCH (10:33)
[2023-11-23] MEDS: Senokot S 8.6-50 MG TAB PO SCH (10:33)
[2023-11-23] MEDS: Midodrine HCl 5 MG TAB PO SCH ×3 (10:33→20:24)
[2023-11-23] MEDS: Amiodarone 200 MG TAB PO SCH (10:33)
[2023-11-23] MEDS: Apixaban 2.5 MG TAB PO SCH ×2 (10:33→20:24)
[2023-11-23] MEDS: EPOETIN ALFA-EPBX (ESRD) 10,000 UNITS/ML VIAL SC SCH (10:34)
[2023-11-23] MEDS: Polyethylene Glycol 3350 17 GM Packet PO SCH (10:34)
[2023-11-23] MEDS: NOREPINEPHRINE 8 MG/250 ML-D5W 250 ML IVPB PRN (18:05)
[2023-11-23] MEDS: Melatonin 3 MG TAB PO SCH (20:24)
[2023-11-23] MEDS ORDERED: traZODone HCl 50 MG TAB PO SCH (21:45)
[2023-11-24] MEDS: Piperacillin/Tazobactam 3.375 GM in Sodium Chloride 0.9% 100 ML IVPB SCH ×2 (04:32→16:14)
[2023-11-24 05:21] LABS: ALT (SGPT) 194 U/L (8-55); AST (SGOT) 188 U/L (5-34); Albumin 2.8 g/dL (3.4-4.8); Alkaline Phosphatase 193 U/L (40-110); Anion Gap 17 mmol/L (10-20); BUN (Urea Nitrogen) 33 mg/dL (9.8-20.1); Bilirubin, Total 1.1 mg/dL (0.2-1.2); Calc. Creatinine Clearance 9 mL/min (70-130); Carbon Dioxide 28 mmol/L (23-31); Chloride 93 mmol/L (98-107); Estimated GFR 8; Globulin 4.2 g/dL (2.4-3.5); Glucose 155 mg/dL (83-110); Potassium 3.7 mmol/L (3.5-5.1); Sodium 134 mmol/L (136-145)
[2023-11-24 05:33] LABS: #Eosinphils 0.1 thou/uL (0.0-0.7); #Neutrophils 4.8 thou/uL (1.40-6.50); %Basophils 0.4 % (0.0-1.0); %Eosinophils 1.6 % (0.0-10.0); %Lymphocytes 14.6 % (21.0-51.0); %Monocytes 14.8 % (0.0-10.0); %Neutrophils 67.7 % (42.0-75.0); Hematocrit 30.8 % (36.0-47.0); Mean Corpuscular HGB CONC 32.5 g/dL (32.0-36.0); Mean Corpuscular Hemoglobin 32.4 pg (27.0-31.0); Mean Corpuscular Volume 99.7 fl (78.0-98.0); Mean Platelet Volume 10.7 fL (7.4-10.4); Platelet Count 125 10x3/uL (130-400); RBC Distribution Width 18.4 % (11.5-14.5); Red Blood Cell (RBC) Count 3.09 mill/uL (4.20-5.40); White Blood Cell (WBC) Count 7.1 10x3/uL (4.8-10.8)
[2023-11-24] MEDS: Levothyroxine Sodium 100 MCG TAB PO SCH (06:09)
[2023-11-24 06:39] LABS: Free T4 (Free Thyroxine) 1.02 ng/dL (0.70-1.48); T4 4.41 ug/dL (4.87-11.72)
[2023-11-24] MEDS: Sertraline 100 MG TAB PO SCH (09:32)
[2023-11-24] MEDS: Midodrine HCl 5 MG TAB PO SCH ×3 (09:32→20:34)
[2023-11-24] MEDS: Famotidine/PF 20 mg/2ml Vial SLOW IVP SCH (09:33)
[2023-11-24] MEDS: Amiodarone 200 MG TAB PO SCH (09:33)
[2023-11-24] MEDS: Polyethylene Glycol 3350 17 GM Packet PO SCH (09:33)
[2023-11-24] MEDS: Senokot S 8.6-50 MG TAB PO SCH (09:33)
[2023-11-24] MEDS: Albumin 25% 25 GM (100 mL) BOT IVPB SCH ×2 (13:41→18:20)
[2023-11-24] MEDS: Melatonin 3 MG TAB PO SCH (20:34)
[2023-11-24] MEDS: Acetaminophen 325 MG TAB PO PRN (20:34)
[2023-11-25] MEDS: Albumin 25% 25 GM (100 mL) BOT IVPB SCH ×2 (01:02→06:22)
[2023-11-25] MEDS: DOBUTamine 500 mg/250 ml 250 ML IVPB SCH (01:09)
[2023-11-25] MEDS: NOREPINEPHRINE 8 MG/250 ML-D5W 250 ML IVPB PRN (03:20)
[2023-11-25] MEDS: Piperacillin/Tazobactam 3.375 GM in Sodium Chloride 0.9% 100 ML IVPB SCH ×2 (03:20→15:07)
[2023-11-25 04:41] LABS: #Eosinphils 0.1 thou/uL (0.0-0.7); #Monocytes 0.8 thou/uL (0.11-0.59); #Neutrophils 3.7 thou/uL (1.40-6.50); %Basophils 0.2 % (0.0-1.0); %Eosinophils 1.5 % (0.0-10.0); %Neutrophils 67.7 % (42.0-75.0); Hematocrit 26.6 % (36.0-47.0); Hemoglobin 8.6 g/dL (12.0-16.0); Mean Corpuscular HGB CONC 32.3 g/dL (32.0-36.0); Mean Corpuscular Hemoglobin 32.6 pg (27.0-31.0); Mean Corpuscular Volume 100.8 fl (78.0-98.0); Mean Platelet Volume 11.1 fL (7.4-10.4); Platelet Count 101 10x3/uL (130-400); RBC Distribution Width 18.6 % (11.5-14.5); Red Blood Cell (RBC) Count 2.64 mill/uL (4.20-5.40); White Blood Cell (WBC) Count 5.4 10x3/uL (4.8-10.8)
[2023-11-25 05:10] LABS: ALT (SGPT) 112 U/L (8-55); AST (SGOT) 90 U/L (5-34); Albumin 3.8 g/dL (3.4-4.8); Alkaline Phosphatase 147 U/L (40-110); Anion Gap 15 mmol/L (10-20); BUN (Urea Nitrogen) 18 mg/dL (9.8-20.1); Bilirubin, Total 1.1 mg/dL (0.2-1.2); Calc. Creatinine Clearance 13 mL/min (70-130); Carbon Dioxide 26 mmol/L (23-31); Chloride 97 mmol/L (98-107); Estimated GFR 12; Globulin 3.2 g/dL (2.4-3.5); Glucose 139 mg/dL (83-110); Potassium 3.2 mmol/L (3.5-5.1); Sodium 135 mmol/L (136-145)
[2023-11-25] MEDS: Levothyroxine Sodium 100 MCG TAB PO SCH (06:22)
[2023-11-25] MEDS ORDERED: Potassium Chloride 20 MEQ in Premix 1 BAG IVPB SCH (06:30)
[2023-11-25] MEDS: Polyethylene Glycol 3350 17 GM Packet PO SCH (09:35)
[2023-11-25] MEDS: Senokot S 8.6-50 MG TAB PO SCH (09:36)
[2023-11-25] MEDS: Midodrine HCl 5 MG TAB PO SCH ×3 (09:36→20:14)
[2023-11-25] MEDS: Sertraline 100 MG TAB PO SCH (09:36)
[2023-11-25] MEDS: Apixaban 2.5 MG TAB PO SCH (20:14)
[2023-11-25] MEDS: Melatonin 3 MG TAB PO SCH (20:14)
[2023-11-25] MEDS: Acetaminophen 325 MG TAB PO PRN (20:14)
[2023-11-26] MEDS: Piperacillin/Tazobactam 3.375 GM in Sodium Chloride 0.9% 100 ML IVPB SCH ×2 (04:21→16:49)
[2023-11-26 04:41] LABS: #Eosinphils 0.1 thou/uL (0.0-0.7); #Monocytes 0.9 thou/uL (0.11-0.59); #Neutrophils 4.2 thou/uL (1.40-6.50); %Basophils 0.5 % (0.0-1.0); %Lymphocytes 12.2 % (21.0-51.0); %Monocytes 14.4 % (0.0-10.0); %Neutrophils 70.6 % (42.0-75.0); Hematocrit 27.3 % (36.0-47.0); Hemoglobin 8.8 g/dL (12.0-16.0); Mean Corpuscular HGB CONC 32.2 g/dL (32.0-36.0); Mean Corpuscular Hemoglobin 32.6 pg (27.0-31.0); Mean Corpuscular Volume 101.1 fl (78.0-98.0); Mean Platelet Volume 11.7 fL (7.4-10.4); RBC Distribution Width 18.9 % (11.5-14.5)
[2023-11-26 04:59] LABS: Platelet Count 107 10x3/uL (130-400)
[2023-11-26 05:03] LABS: Anion Gap 19 mmol/L (10-20); BUN (Urea Nitrogen) 21 mg/dL (9.8-20.1); Calc. Creatinine Clearance 10 mL/min (70-130); Calcium 7.9 mg/dL (7.8-10.44); Carbon Dioxide 25 mmol/L (23-31); Chloride 96 mmol/L (98-107); Estimated GFR 9; Glucose 91 mg/dL (83-110); Potassium 3.6 mmol/L (3.5-5.1); Sodium 136 mmol/L (136-145)
[2023-11-26] MEDS: Levothyroxine Sodium 100 MCG TAB PO SCH (05:36)
[2023-11-26] MEDS: Midodrine HCl 5 MG TAB PO SCH ×3 (08:00→21:46)
[2023-11-26] MEDS: Apixaban 2.5 MG TAB PO SCH (08:00)
[2023-11-26] MEDS: Sertraline 100 MG TAB PO SCH (08:00)
[2023-11-26] MEDS: Senokot S 8.6-50 MG TAB PO SCH (08:01)
[2023-11-26] MEDS: Famotidine/PF 20 mg/2ml Vial SLOW IVP SCH (08:01)
[2023-11-26] MEDS: Polyethylene Glycol 3350 17 GM Packet PO SCH (08:01)
[2023-11-26] MEDS ORDERED: Heparin 10,000 UNITS/ 10 ML VIAL SLOW IVP SCH (11:45)
[2023-11-26 11:54] LABS: Hematocrit 27.6 % (36.0-47.0); Hemoglobin 9.2 g/dL (12.0-16.0); Platelet Count 100 10x3/uL (130-400)
[2023-11-26] MEDS: Heparin 25,000 units/D5W 500 ML IVPB SCH (17:15)
[2023-11-26] MEDS: Melatonin 3 MG TAB PO SCH (21:46)
[2023-11-26] MEDS: DOBUTamine 500 mg/250 ml 250 ML IVPB SCH (22:23)
[2023-11-27 01:06] LABS: PTT 227.6 sec (22.9-36.1)
[2023-11-27 03:26] LABS: #Eosinphils 0.1 thou/uL (0.0-0.7); #Neutrophils 4.5 thou/uL (1.40-6.50); %Basophils 0.3 % (0.0-1.0); %Eosinophils 1.2 % (0.0-10.0); %Lymphocytes 12.9 % (21.0-51.0); %Monocytes 15.1 % (0.0-10.0); Hematocrit 27.8 % (36.0-47.0); Hemoglobin 9.1 g/dL (12.0-16.0); Mean Corpuscular HGB CONC 32.7 g/dL (32.0-36.0); Mean Corpuscular Hemoglobin 32.6 pg (27.0-31.0); Mean Corpuscular Volume 99.6 fl (78.0-98.0); Mean Platelet Volume 11.1 fL (7.4-10.4); Platelet Count 115 10x3/uL (130-400); RBC Distribution Width 19.2 % (11.5-14.5); Red Blood Cell (RBC) Count 2.79 mill/uL (4.20-5.40); White Blood Cell (WBC) Count 6.4 10x3/uL (4.8-10.8)
[2023-11-27 03:42] LABS: Anion Gap 17 mmol/L (10-20); BUN (Urea Nitrogen) 12 mg/dL (9.8-20.1); Calc. Creatinine Clearance 15 mL/min (70-130); Calcium 8.3 mg/dL (7.8-10.44); Carbon Dioxide 26 mmol/L (23-31); Chloride 100 mmol/L (98-107); Estimated GFR 14; Glucose 109 mg/dL (83-110); Potassium 3.2 mmol/L (3.5-5.1); Sodium 140 mmol/L (136-145)
[2023-11-27] MEDS: Piperacillin/Tazobactam 3.375 GM in Sodium Chloride 0.9% 100 ML IVPB SCH ×2 (03:58→15:01)
[2023-11-27 06:33] VITALS: BMI 26.4
[2023-11-27] MEDS: Levothyroxine Sodium 100 MCG TAB PO SCH (06:35)
[2023-11-27] MEDS ORDERED: Potassium Chloride 20 MEQ TAB PO SCH (07:30)
[2023-11-27] MEDS: Midodrine HCl 5 MG TAB PO SCH ×3 (09:32→20:38)
[2023-11-27] MEDS: Polyethylene Glycol 3350 17 GM Packet PO SCH (09:32)
[2023-11-27] MEDS: Senokot S 8.6-50 MG TAB PO SCH (09:33)
[2023-11-27] MEDS: Sertraline 100 MG TAB PO SCH (09:33)
[2023-11-27 18:21] LABS: PTT 129.2 sec (22.9-36.1)
[2023-11-27] MEDS: Melatonin 3 MG TAB PO SCH (20:38)
[2023-11-27] MEDS ORDERED: Lorazepam 2 MG/ML VIAL SLOW IVP SCH (21:30)
[2023-11-28] MEDS: Piperacillin/Tazobactam 3.375 GM in Sodium Chloride 0.9% 100 ML IVPB SCH ×2 (04:17→15:33)
[2023-11-28 04:53] LABS: #Eosinphils 0.2 thou/uL (0.0-0.7); #Monocytes 1.1 thou/uL (0.11-0.59); #Neutrophils 5.1 thou/uL (1.40-6.50); %Basophils 0.4 % (0.0-1.0); %Eosinophils 2.4 % (0.0-10.0); %Neutrophils 68.7 % (42.0-75.0); Hematocrit 29.7 % (36.0-47.0); Hemoglobin 9.7 g/dL (12.0-16.0); Mean Corpuscular HGB CONC 32.7 g/dL (32.0-36.0); Mean Corpuscular Hemoglobin 32.9 pg (27.0-31.0); Mean Corpuscular Volume 100.7 fl (78.0-98.0); Mean Platelet Volume 11.4 fL (7.4-10.4); Platelet Count 126 10x3/uL (130-400); RBC Distribution Width 19.8 % (11.5-14.5); Red Blood Cell (RBC) Count 2.95 mill/uL (4.20-5.40); White Blood Cell (WBC) Count 7.5 10x3/uL (4.8-10.8)
[2023-11-28 05:18] LABS: Anion Gap 14 mmol/L (10-20); BUN (Urea Nitrogen) 22 mg/dL (9.8-20.1); Calc. Creatinine Clearance 11 mL/min (70-130); Calcium 8.4 mg/dL (7.8-10.44); Carbon Dioxide 27 mmol/L (23-31); Chloride 100 mmol/L (98-107); Estimated GFR 9; Glucose 134 mg/dL (83-110); Sodium 137 mmol/L (136-145)
[2023-11-28] MEDS: Levothyroxine Sodium 100 MCG TAB PO SCH (05:55)
[2023-11-28] MEDS: Famotidine/PF 20 mg/2ml Vial SLOW IVP SCH (08:54)
[2023-11-28] MEDS: Sertraline 100 MG TAB PO SCH (08:54)
[2023-11-28] MEDS: Senokot S 8.6-50 MG TAB PO SCH (08:54)
[2023-11-28] MEDS: Polyethylene Glycol 3350 17 GM Packet PO SCH (08:54)
[2023-11-28] MEDS: Midodrine HCl 5 MG TAB PO SCH ×3 (08:55→20:36)
[2023-11-28] MEDS: Heparin 25,000 units/D5W 500 ML IVPB SCH (09:35)
[2023-11-28] MEDS ORDERED: Ondansetron PF 4 MG/2 ML Vial IVP PRN (12:33)
[2023-11-28 12:42] LABS: Hematocrit 32.9 % (36.0-47.0); Hemoglobin 10.7 g/dL (12.0-16.0); Platelet Count 127 10x3/uL (130-400)
[2023-11-28 16:21] VITALS: BP 165/79
[2023-11-28] MEDS: Melatonin 3 MG TAB PO SCH (20:45)
[2023-11-29] MEDS: Piperacillin/Tazobactam 3.375 GM in Sodium Chloride 0.9% 100 ML IVPB SCH ×2 (03:00→16:54)
[2023-11-29 04:29] LABS: #Eosinphils 0.1 thou/uL (0.0-0.7); %Basophils 0.5 % (0.0-1.0); %Eosinophils 1.7 % (0.0-10.0); %Lymphocytes 12.4 % (21.0-51.0); %Neutrophils 72.7 % (42.0-75.0); Hematocrit 28.6 % (36.0-47.0); Hemoglobin 9.4 g/dL (12.0-16.0); Mean Corpuscular HGB CONC 32.9 g/dL (32.0-36.0); Mean Corpuscular Hemoglobin 33.2 pg (27.0-31.0); Mean Corpuscular Volume 101.1 fl (78.0-98.0); Platelet Count 129 10x3/uL (130-400); Red Blood Cell (RBC) Count 2.83 mill/uL (4.20-5.40); White Blood Cell (WBC) Count 8.3 10x3/uL (4.8-10.8)
[2023-11-29 04:54] LABS: Anion Gap 19 mmol/L (10-20); BUN (Urea Nitrogen) 31 mg/dL (9.8-20.1); Calc. Creatinine Clearance 9 mL/min (70-130); Calcium 8.3 mg/dL (7.8-10.44); Carbon Dioxide 25 mmol/L (23-31); Cardiac Risk 2.5 (Less than 4.5); Chloride 99 mmol/L (98-107); Cholesterol 99 mg/dl (< 200 Desired); Estimated GFR 7; Glucose 132 mg/dL (83-110); HDL Cholesterol 39 mg/dL (>60 Neg Risk); LDL Cholesterol, Calculated 48 mg/dL; Potassium 4.2 mmol/L (3.5-5.1); Sodium 139 mmol/L (136-145); Triglycerides 62 mg/dL (Less than 150)
[2023-11-29] MEDS: Levothyroxine Sodium 100 MCG TAB PO SCH (06:15)
[2023-11-29] MEDS: Polyethylene Glycol 3350 17 GM Packet PO SCH (08:09)
[2023-11-29] MEDS: Midodrine HCl 5 MG TAB PO SCH ×3 (08:09→22:12)
[2023-11-29] MEDS: Senokot S 8.6-50 MG TAB PO SCH (08:09)
[2023-11-29] MEDS: Sertraline 100 MG TAB PO SCH (08:13)
[2023-11-29] MEDS ORDERED: Albumin 25% 25 GM (100 mL) BOT IVPB SCH (09:00)
[2023-11-29] MEDS: Melatonin 3 MG TAB PO SCH (22:43)
[2023-11-30] MEDS: Piperacillin/Tazobactam 3.375 GM in Sodium Chloride 0.9% 100 ML IVPB SCH ×2 (03:42→15:56)
[2023-11-30] MEDS: Levothyroxine Sodium 100 MCG TAB PO SCH (03:42)
[2023-11-30] MEDS ORDERED: Sodium Chloride 0.9% 1,000 ML IV SCH (06:00)
[2023-11-30] MEDS ORDERED: fentaNYL 50 mcg/mL 1 mL Vial ONE (06:19)
[2023-11-30] MEDS ORDERED: Midazolam HCl 2 mg/2 ml Vial ONE (06:19)
[2023-11-30] MEDS ORDERED: CEFAZOLIN 1 GM VIAL ONE (06:19)
[2023-11-30] MEDS ORDERED: CEFAZOLIN 2 GM VIAL ONE (06:19)
[2023-11-30] MEDS ORDERED: Gentamicin 80 MG/2 ML VIAL ONE (06:19)
[2023-11-30 06:41] LABS: #Eosinphils 0.2 thou/uL (0.0-0.7); #Monocytes 1.1 thou/uL (0.11-0.59); #Neutrophils 6.1 thou/uL (1.40-6.50); %Basophils 0.5 % (0.0-1.0); %Eosinophils 2.6 % (0.0-10.0); %Lymphocytes 14.8 % (21.0-51.0); %Monocytes 12.8 % (0.0-10.0); %Neutrophils 68.7 % (42.0-75.0); Hematocrit 30.5 % (36.0-47.0); Hemoglobin 9.9 g/dL (12.0-16.0); Mean Corpuscular HGB CONC 32.5 g/dL (32.0-36.0); Mean Corpuscular Hemoglobin 32.7 pg (27.0-31.0); Mean Corpuscular Volume 100.7 fl (78.0-98.0); Mean Platelet Volume 10.7 fL (7.4-10.4); Platelet Count 148 10x3/uL (130-400); RBC Distribution Width 20.2 % (11.5-14.5); Red Blood Cell (RBC) Count 3.03 mill/uL (4.20-5.40); White Blood Cell (WBC) Count 8.9 10x3/uL (4.8-10.8)
[2023-11-30] MEDS ORDERED: Vancomycin HCl 500 MG VIAL ONE (07:12)
[2023-11-30 07:15] LABS: Anion Gap 18 mmol/L (10-20); BUN (Urea Nitrogen) 20 mg/dL (9.8-20.1); Calc. Creatinine Clearance 13 mL/min (70-130); Calcium 8.3 mg/dL (7.8-10.44); Carbon Dioxide 27 mmol/L (23-31); Chloride 97 mmol/L (98-107); Estimated GFR 11; Glucose 103 mg/dL (83-110); Potassium 3.7 mmol/L (3.5-5.1); Sodium 138 mmol/L (136-145)
[2023-11-30] MEDS ORDERED: Amiodarone 200 MG TAB PO SCH (09:15)
[2023-11-30] MEDS ORDERED: Vancomycin HCl 500 MG in Sodium Chloride 0.9% 100 ML IVPB SCH (09:15)
[2023-11-30] MEDS: Midodrine HCl 5 MG TAB PO SCH (09:52)
[2023-11-30] MEDS: Famotidine/PF 20 mg/2ml Vial SLOW IVP SCH (09:52)
[2023-11-30] MEDS: Polyethylene Glycol 3350 17 GM Packet PO SCH (09:53)
[2023-11-30] MEDS: Senokot S 8.6-50 MG TAB PO SCH (09:53)
[2023-11-30] MEDS: Sertraline 100 MG TAB PO SCH (09:53)
[2023-11-30] MEDS: EPOETIN ALFA-EPBX (ESRD) 10,000 UNITS/ML VIAL SC SCH (10:38)
[2023-11-30] MEDS: Cephalexin 250 MG CAP PO SCH ×2 (14:40→20:58)
[2023-11-30] MEDS: Acetaminophen 325 MG TAB PO PRN (14:40)
[2023-11-30] MEDS ORDERED: Midodrine HCl 5 MG TAB PO SCH (15:00)
[2023-11-30] MEDS: Melatonin 3 MG TAB PO SCH (20:58)
[2023-12-01] MEDS: Levothyroxine Sodium 100 MCG TAB PO SCH (05:42)
[2023-12-01] MEDS: Piperacillin/Tazobactam 3.375 GM in Sodium Chloride 0.9% 100 ML IVPB SCH (05:42)
[2023-12-01 06:33] LABS: #Basophils 0.1 thou/uL (0.0-0.2); #Eosinphils 0.2 thou/uL (0.0-0.7); #Monocytes 1.3 thou/uL (0.11-0.59); #Neutrophils 6.4 thou/uL (1.40-6.50); %Basophils 0.6 % (0.0-1.0); %Eosinophils 2.1 % (0.0-10.0); %Lymphocytes 12.3 % (21.0-51.0); %Neutrophils 70.6 % (42.0-75.0); Hematocrit 29.6 % (36.0-47.0); Hemoglobin 9.6 g/dL (12.0-16.0); Mean Corpuscular HGB CONC 32.4 g/dL (32.0-36.0); Mean Corpuscular Volume 101.7 fl (78.0-98.0); Mean Platelet Volume 11.2 fL (7.4-10.4); Platelet Count 138 10x3/uL (130-400); RBC Distribution Width 20.1 % (11.5-14.5); Red Blood Cell (RBC) Count 2.91 mill/uL (4.20-5.40); White Blood Cell (WBC) Count 9.1 10x3/uL (4.8-10.8)
[2023-12-01 07:48] LABS: Anion Gap 20 mmol/L (10-20); BUN (Urea Nitrogen) 31 mg/dL (9.8-20.1); Calc. Creatinine Clearance 10 mL/min (70-130); Calcium 8.1 mg/dL (7.8-10.44); Carbon Dioxide 23 mmol/L (23-31); Chloride 98 mmol/L (98-107); Estimated GFR 8; Glucose 114 mg/dL (83-110); Potassium 3.7 mmol/L (3.5-5.1); Sodium 137 mmol/L (136-145)
[2023-12-01] MEDS ORDERED: Amiodarone 200 MG TAB PO SCH (09:00)
[2023-12-01] MEDS: Cephalexin 250 MG CAP PO SCH ×2 (09:00→13:28)
[2023-12-01 11:59] VITALS: TEMP 97.4
[2023-12-01] MEDS: Famotidine/PF 20 mg/2ml Vial SLOW IVP SCH (13:27)
[2023-12-01] MEDS: Sertraline 100 MG TAB PO SCH (13:27)
[2023-12-01] MEDS: Polyethylene Glycol 3350 17 GM Packet PO SCH (13:28)
[2023-12-01] MEDS: Senokot S 8.6-50 MG TAB PO SCH (13:28)
[2023-12-03] MEDS ORDERED: Apixaban 2.5 MG TAB PO SCH (09:00)
== END 2023-12-01 17:10 | DRG 907 ==
LOC: ERS 17:41 → CCU 20:47 → IMCU/EMU 11-27 07:48 → CCU 11-30 04:56 → IMCU/EMU 11-30 04:57
PROVIDERS: ADMIT Student in an Organized Health Care Education/Training Program; ATTEND Internal Medicine
PROC: 03HY32Z Insertion of Monitoring Device into Upper Artery, Percutaneous Approach (ICD-10-PCS; principal; 2023-11-21)
PROC: 06HY33Z Insertion of Infusion Device into Lower Vein, Percutaneous Approach (ICD-10-PCS; 2023-11-21)
PROC: 3E033XZ Introduction of Vasopressor into Peripheral Vein, Percutaneous Approach (ICD-10-PCS; 2023-11-21)
PROC: 30233J1 Transfusion of Nonautologous Serum Albumin into Peripheral Vein, Percutaneous Approach (ICD-10-PCS; 2023-11-24)
PROC: 02H63JZ Insertion of Pacemaker Lead into Right Atrium, Percutaneous Approach (ICD-10-PCS; 2023-11-30)
PROC: 02HK3JZ Insertion of Pacemaker Lead into Right Ventricle, Percutaneous Approach (ICD-10-PCS; 2023-11-30)
PROC: 0JH606Z Insertion of Pacemaker, Dual Chamber into Chest Subcutaneous Tissue and Fascia, Open Approach (ICD-10-PCS; 2023-11-30)
DX: T40.2X1A Poisoning by other opioids, accidental (unintentional), initial encounter (principal); G92.8 Other toxic encephalopathy; N18.6 End stage renal disease; I50.30 Unspecified diastolic (congestive) heart failure; R57.9 Shock, unspecified; I13.2 Hypertensive heart and chronic kidney disease with heart failure and with stage 5 chronic kidney disease, or end stage renal disease; I49.5 Sick sinus syndrome; I48.91 Unspecified atrial fibrillation; E11.22 Type 2 diabetes mellitus with diabetic chronic kidney disease; I08.1 Rheumatic disorders of both mitral and tricuspid valves; K21.9 Gastro-esophageal reflux disease without esophagitis; D64.9 Anemia, unspecified; E87.6 Hypokalemia; Z99.2 Dependence on renal dialysis; Z79.01 Long term (current) use of anticoagulants; Z79.899 Other long term (current) drug therapy; Z98.890 Other specified postprocedural states; Z90.49 Acquired absence of other specified parts of digestive tract; Z88.5 Allergy status to narcotic agent; Z11.52 Encounter for screening for COVID-19; Y92.9 Unspecified place or not applicable; S22.049D Unspecified fracture of fourth thoracic vertebra, subsequent encounter for fracture with routine healing; S22.059D Unspecified fracture of T5-T6 vertebra, subsequent encounter for fracture with routine healing
CPT/HCPCS: 33208; 36415; 36416; 51701; 70450; 71045; 74177; 80048; 80053; 80061; 80074; 80307; 82533; 82805; 83605; 83735; 83880; 84100; 84436; 84439; 84443; 84480; 84481; 85025; 85730; 87040; 93005; 93010; 93306; 94760; 96374; 96375; 97139; 99152; 99153; J0171; J0461; J0690; J1250; J1580; J1644; J2250; J2310; J2405; J2543; J3010; J3370; J3480; J3490; J7050; P9047; Q5105; Q9967; S0028

== ENCOUNTER 2023-12-14 13:36 | Outpatient (CLI) | payer MEDICARE | END 2023-12-14 13:37 | disposition home or self-care (01) | LOC: RAD 13:36 | PROVIDERS: ATTEND Neurological Surgery | DX: S22.008D Other fracture of unspecified thoracic vertebra, subsequent encounter for fracture with routine healing (principal) | CPT/HCPCS: 72072 ==

== ENCOUNTER 2024-01-24 15:35 | Inpatient (IN) | payer MEDICARE ==
[2024-01-24] MEDS ORDERED: Amiodarone 150 MG/3 ML VIAL ONE (16:04)
[2024-01-24 16:12] LABS: #Eosinphils 0.2 thou/uL (0.0-0.7); #Monocytes 0.6 thou/uL (0.11-0.59); #Neutrophils 2.8 thou/uL (1.40-6.50); %Basophils 0.5 % (0.0-1.0); %Eosinophils 3.4 % (0.0-10.0); %Lymphocytes 34.8 % (21.0-51.0); %Monocytes 10.7 % (0.0-10.0); %Neutrophils 50.4 % (42.0-75.0); Hematocrit 32.1 % (36.0-47.0); Hemoglobin 10.7 g/dL (12.0-16.0); Mean Corpuscular HGB CONC 33.3 g/dL (32.0-36.0); Mean Corpuscular Hemoglobin 33.1 pg (27.0-31.0); Mean Corpuscular Volume 99.4 fl (78.0-98.0); Platelet Count 159 10x3/uL (130-400); Red Blood Cell (RBC) Count 3.23 mill/uL (4.20-5.40); White Blood Cell (WBC) Count 5.5 10x3/uL (4.8-10.8)
[2024-01-24 16:32] LABS: ALT (SGPT) 17 U/L (8-55); AST (SGOT) 34 U/L (5-34); Albumin 3.1 g/dL (3.4-4.8); Alkaline Phosphatase 159 U/L (40-110); Anion Gap 17 mmol/L (10-20); BUN (Urea Nitrogen) 12 mg/dL (9.8-20.1); Bilirubin, Total 0.6 mg/dL (0.2-1.2); Calc. Creatinine Clearance 0 mL/min (70-130); Calcium 8.5 mg/dL (7.8-10.44); Carbon Dioxide 30 mmol/L (23-31); Chloride 94 mmol/L (98-107); Estimated GFR 16; Globulin 4.3 g/dL (2.4-3.5); Glucose 87 mg/dL (83-110); Lipase 23 U/L (8-78); Potassium 2.7 mmol/L (3.5-5.1); Protein, Total 7.4 g/dL (5.8-8.1); Sodium 138 mmol/L (136-145)
[2024-01-24 16:37] LABS: Critical Call Chem Troponin I ERS.JAN@1636
[2024-01-24] MEDS ORDERED: Potassium Chloride 20 MEQ TAB ONE (17:15)
[2024-01-24 18:15] LABS: Magnesium 1.7 mg/dL (1.6-2.6)
[2024-01-24] MEDS ORDERED: Ondansetron ODT 4 MG TAB PO PRN (18:32)
[2024-01-24] MEDS ORDERED: Glucagon 1 MG/ML KIT IM PRN (18:32)
[2024-01-24] MEDS ORDERED: Ondansetron PF 4 MG/2 ML Vial IVP PRN (18:32)
[2024-01-24] MEDS ORDERED: Guaifenesin DM 100-10/5 ML UDCUP PO PRN (18:32)
[2024-01-24] MEDS ORDERED: Dextrose 50% Abboject 50 ML SYRINGE SLOW IVP PRN (18:32)
[2024-01-24] MEDS ORDERED: HumaLOG 300 UNITS/3 ML VIAL SC PRN ×2 (18:32)
[2024-01-24] MEDS ORDERED: Acetaminophen 325 MG TAB PO PRN (18:32)
[2024-01-24] MEDS ORDERED: Acetaminophen 650 MG Suppository PR PRN (18:32)
[2024-01-24] MEDS ORDERED: Dextrose 5% in Water 1,000 ML IV PRN (18:32)
[2024-01-24 19:10] VITALS: BMI 24.1
[2024-01-24 19:16] LABS: Critical Call Chem Troponin I RESULT DECREASING; Troponin I 0.201 ng/mL (< 0.028)
[2024-01-24] MEDS: Apixaban 2.5 MG TAB PO SCH (20:30)
[2024-01-24] MEDS: Atorvastatin Calcium 40 MG TAB PO SCH (20:30)
[2024-01-24] MEDS: Melatonin 3 MG TAB PO SCH (20:30)
[2024-01-24] MEDS: Simethicone Chewable 80 MG TAB PO SCH (20:30)
[2024-01-24] MEDS: Magnesium 2 GM/50 ML(in water) 2 GM in Premix 1 BAG IVPB SCH (20:31)
[2024-01-24 23:01] LABS: Critical Call Chem Troponin I NUR.TNO @2300; Troponin I 0.741 ng/mL (< 0.028)
[2024-01-25] MEDS: Levothyroxine Sodium 112 MCG TAB PO SCH (05:41)
[2024-01-25 05:49] LABS: #Eosinphils 0.1 thou/uL (0.0-0.7); #Monocytes 0.7 thou/uL (0.11-0.59); #Neutrophils 2.9 thou/uL (1.40-6.50); %Basophils 0.4 % (0.0-1.0); %Eosinophils 2.5 % (0.0-10.0); %Monocytes 13.7 % (0.0-10.0); Hematocrit 28.3 % (36.0-47.0); Hemoglobin 9.1 g/dL (12.0-16.0); Mean Corpuscular HGB CONC 32.2 g/dL (32.0-36.0); Mean Corpuscular Hemoglobin 32.9 pg (27.0-31.0); Mean Corpuscular Volume 102.2 fl (78.0-98.0); Mean Platelet Volume 11.2 fL (7.4-10.4); Platelet Count 140 10x3/uL (130-400); RBC Distribution Width 18.3 % (11.5-14.5); Red Blood Cell (RBC) Count 2.77 mill/uL (4.20-5.40); White Blood Cell (WBC) Count 5.3 10x3/uL (4.8-10.8)
[2024-01-25 06:20] LABS: Anion Gap 13 mmol/L (10-20); BUN (Urea Nitrogen) 20 mg/dL (9.8-20.1); Calc. Creatinine Clearance 12 mL/min (70-130); Calcium 8.3 mg/dL (7.8-10.44); Carbon Dioxide 28 mmol/L (23-31); Chloride 98 mmol/L (98-107); Critical Call Chem Troponin I NUR.AC18 @0620; Estimated GFR 12; Glucose 86 mg/dL (83-110); Magnesium 2.3 mg/dL (1.6-2.6); Potassium 3.4 mmol/L (3.5-5.1); Sodium 136 mmol/L (136-145); Troponin I 1.092 ng/mL (< 0.028)
[2024-01-25] MEDS: Aspirin 81 mg Enteric Coated Tablet PO SCH (08:01)
[2024-01-25] MEDS: Sertraline 100 MG TAB PO SCH (08:01)
[2024-01-25] MEDS: Amiodarone 200 MG TAB PO SCH (08:02)
[2024-01-25] MEDS ORDERED: Epoetin (ESRD) 20,000 UNITS/ML MDV SC SCH (08:45)
[2024-01-25] MEDS: Metoprolol Tartrate 50 MG TAB PO SCH (09:04)
[2024-01-25] MEDS: Potassium Chloride 20 MEQ TAB PO SCH (09:04)
[2024-01-25] MEDS: EPOETIN ALFA-EPBX (ESRD) 10,000 UNITS/ML VIAL SC SCH (13:30)
[2024-01-25] MEDS: Apixaban 2.5 MG TAB PO SCH (21:16)
[2024-01-26 04:47] LABS: Hematocrit 30.9 % (36.0-47.0); Hemoglobin 9.9 g/dL (12.0-16.0); Mean Corpuscular Hemoglobin 32.2 pg (27.0-31.0); Mean Corpuscular Volume 100.7 fl (78.0-98.0); Mean Platelet Volume 11.3 fL (7.4-10.4); Platelet Count 159 10x3/uL (130-400); RBC Distribution Width 18.9 % (11.5-14.5); Red Blood Cell (RBC) Count 3.07 mill/uL (4.20-5.40); White Blood Cell (WBC) Count 5.9 10x3/uL (4.8-10.8)
[2024-01-26 05:27] LABS: Anion Gap 17 mmol/L (10-20); BUN (Urea Nitrogen) 27 mg/dL (9.8-20.1); Calc. Creatinine Clearance 9 mL/min (70-130); Calcium 8.3 mg/dL (7.8-10.44); Carbon Dioxide 25 mmol/L (23-31); Chloride 99 mmol/L (98-107); Estimated GFR 8; Glucose 96 mg/dL (83-110); Magnesium 2.9 mg/dL (1.6-2.6); Phosphorus 2.4 mg/dL (2.3-4.7); Sodium 137 mmol/L (136-145)
[2024-01-26] MEDS: Aspirin 81 mg Enteric Coated Tablet PO SCH (09:19)
[2024-01-26 16:53] VITALS: BP 176/72; TEMP 98.4
== END 2024-01-26 18:51 | DRG 640 ==
LOC: ERS 15:35 → 2SW 17:44 → OBSVTOIN 01-25 14:47
PROVIDERS: ADMIT Emergency Medicine; ATTEND Internal Medicine
PROC: 5A1D80Z Performance of Urinary Filtration, Prolonged Intermittent, 6-18 hours Per Day (ICD-10-PCS; principal; 2024-01-25)
DX: E86.9 Volume depletion, unspecified (principal); I21.A1 Myocardial infarction type 2; N18.6 End stage renal disease; R57.1 Hypovolemic shock; I12.0 Hypertensive chronic kidney disease with stage 5 chronic kidney disease or end stage renal disease; E11.22 Type 2 diabetes mellitus with diabetic chronic kidney disease; I48.0 Paroxysmal atrial fibrillation; E03.9 Hypothyroidism, unspecified; I95.9 Hypotension, unspecified; E87.6 Hypokalemia; R07.9 Chest pain, unspecified; E78.00 Pure hypercholesterolemia, unspecified; D63.1 Anemia in chronic kidney disease; R00.0 Tachycardia, unspecified; Z95.0 Presence of cardiac pacemaker; Z99.2 Dependence on renal dialysis; Z79.01 Long term (current) use of anticoagulants; Z90.49 Acquired absence of other specified parts of digestive tract; Z79.899 Other long term (current) drug therapy; Z86.16 Personal history of COVID-19
CPT/HCPCS: 36415; 36416; 71045; 80048; 80053; 83605; 83690; 83735; 83880; 83970; 84100; 84484; 85025; 85027; 87040; 93005; 96374; J0282; J0283; J3475; Q5105